=== PATIENT | female | born 1955 | race Caucasian/White ===

== ENCOUNTER 2017-06-15 09:47 | Emergency (ER) | payer OTHER, SELFPAY ==
[2017-06-15 09:48] VITALS: BP 141/87; PULSE 81; RESP 16; TEMP 36.9; O2SAT 97; BMI 29.7
--- NOTE | 2017-06-15 09:55 | RAD_ITS ---
STUDY: X-RAY - PELVIS AND RIGHT HIP REASON FOR EXAM: Female, 61 years old. Sudden onset of right hip pain this morning. Pain over greater trochanter. TECHNIQUE: Radiological exam, hip, unilateral, with pelvis when performed; 2 or 3 views. COMPARISON: None. FINDINGS: There is a non-specific bowel gas pattern. Normal visualized soft tissue structures. Normal bilateral iliac wings, sacroiliac joints and visualized sacrum. Normal bilateral superior and inferior pubic rami. Normal pubic symphysis. Normal bilateral ischial tuberosities. Normal visualized femoral head. Normal acetabulum. Normal hip joint. RAD/Hip 2-3 Views with Pelvis IMPRESSION: Normal x-ray examination of the pelvis and right hip. Electronically Signed: Fernando Gomez MD at 11:10 EDT , Service support ,
--- NOTE | 2017-06-15 10:04 | ED.DCSUM_ITS ---
- ER Visit Summary Date of Service: 06/15/17 Chief Complaint: Right hip pain History of Present Illness: The patient is a 61 F reports right hip pain that started early this morning. Has been waxing and waning throughout the day. Pain is worse with abduction of her right leg. Patient denies known injury but has currently been cleaning and moving furniture out of her parents apartment. She denies back pain. She denies leg weakness or paresthesias. Physical Examination: Vital signs are unremarkable. Patient is in no acute distress. Head neck examination is normal. Heart is regular rate and rhythm. Lung sounds are clear. Abdomen is soft nontender. Back examination reveals no thoracic or lumbar tenderness. There is no point tenderness over the SI joints. Lower external examination was reproduced with tenderness of the greater trochanter of the right hip. She is full range of motion at the joint. She has strong distal pulses and normal sensation. Test Results: X-rays are obtained and unremarkable per my review. Emergency Department Course and Treatment: Patient took ibuprofen prior to arrival and was given p.o. prednisone here. And for prednisone taper. Treatment Plan: [] Disposition: Discharge Impression: Right hip tendonitis This note was generated with [employer] dictation software. It may contain incorrect words, spelling, and punctuation that were not noted in review of the chart prior to signing ED Disposition - Plan for ED Patient: Chief Complaint: Lower Extremity Injury Referrals: Mariposa Flores PA [Primary Care Provider] -
--- NOTE | 2017-06-15 10:58 | ED.DEP ---
ED Disposition - Plan for ED Patient: Disposition: Home or Assisted Living Chief Complaint: Lower Extremity Injury Instructions: ED Tendinitis Calcific Prescriptions: Prednisone 10 mg PO UD #33 tablet Referrals: Mariposa Flores PA [Primary Care Provider] - 1 Week if not improving
[2017-06-15] MEDS: predniSONE 20 MG Tablet 60 MG PO (11:09)
== END 2017-06-15 11:12 | disposition home or self-care (01) ==
PROVIDERS: Emergency Provider Emergency Medicine; Family Provider Physician Assistant; PCP Physician Assistant
DX: M76.891 Other specified enthesopathies of right lower limb, excluding foot (principal); E78.00 Pure hypercholesterolemia, unspecified
CPT/HCPCS: 73502; 99283

== ENCOUNTER → 2017-08-16 07:15 | Outpatient (CLI) | payer OTHER, SELFPAY ==
[2017-08-16 08:24] LABS: AST(SGOT) 47 U/L (15-37); Alanine Aminotransfer ALT/SGPT 73 U/L (13-56); Albumin, Serum 3.8 g/dL (3.2-5.0); Alkaline Phosphatase 78 U/L (45-117); Anion Gap 6 (5-15); BUN 9 mg/dL (7-18); BUN/Creat Ratio 12.5 RATIO (10-20); Calcium,Total 8.8 mg/dL (8.5-10.1); Chloride 107 mmol/L (98-107); Cholesterol 191 mg/dL (200); Creatinine, Serum 0.72 mg/dL (0.55-1.02); EST Glomerular Filtration Rate 88 mL/min (>60); Est Glom Filt Rate - Afr Amer 106 mL/min (>60); Globulin 3.9 g/dL (2.2-4.2); Glucose 107 mg/dL (74-106); High Density Lipoprotein 42 mg/dL; Potassium 3.8 mmol/L (3.5-5.1); Protein, Total 7.7 g/dL (6.4-8.2); Sodium Level 141 mmol/L (136-145); Triglycerides 150 mg/dL; Very Low Density Lipoprotein 30 mg/dL (5-40)
== END ==
PROVIDERS: Family Provider Physician Assistant; PCP Physician Assistant; Visit Provider Physician Assistant
DX: E78.5 Hyperlipidemia, unspecified (principal)
CPT/HCPCS: 36415; 80053; 80061

== ENCOUNTER → 2018-01-08 07:38 | Outpatient (CLI) | payer OTHER, SELFPAY ==
--- NOTE | 2018-01-08 07:40 | BI_ITS ---
MAMMOGRAPHY - BILATERAL SCREENING REASON FOR EXAM: Female, 62 years old. Routine annual screening examination. PERTINENT HISTORY: Non-contributory. TECHNIQUE: Digital bilateral breast michael (3D mammographic acquisition) in the CC and MLO projections. 2-D mediolateral oblique (MLO) and craniocaudad (CC) views of both breasts were obtained. CAD: Full Field Digital Mammography with Computer Added Detection was performed. COMPARISON: Comparison is made with prior study dated December 28, 2016 and July 25, 2016. FINDINGS: Breast Composition: The breasts are heterogeneously dense, which may obscure small masses. There are no dominant masses or suspicious calcifications. Stable 5 mm x 7 mm well-defined nodular density in the deep inferior medial aspect of the right breast. This was demonstrated to be a cyst prior sonogram. No other significant abnormalities are identified. There has been no significant change since the prior study. BI/SCREENING MAMM (CAD), BILAT IMPRESSION: Stable bilateral screening mammogram. Yearly follow-up mammogram recommended. (A) ASSESSMENT CATEGORY: BIRADS Category 2: Benign. A letter regarding these results will be sent to the patient by the facility within 30 days. Approximately 10% of breast cancers are not detected by mammography. A normal mammogram should not delay biopsy of a clinically suspicious abnormality. [id number] Electronically Signed: Ricardo Baptiste MD at 8:25 EDT Tel [phone], Service support ,
== END ==
PROVIDERS: Family Provider Physician Assistant; PCP Physician Assistant; Referring Provider Physician Assistant; Visit Provider Physician Assistant
DX: Z12.31 Encounter for screening mammogram for malignant neoplasm of breast (principal)
CPT/HCPCS: 77063; 77067

== ENCOUNTER 2018-01-14 11:00 | Outpatient (RCR) | payer OTHER, SELFPAY | END 2018-01-14 17:21 | disposition home or self-care (01) | LOC: NS 11:00 | PROVIDERS: Family Provider Physician Assistant; PCP Physician Assistant; Visit Provider Physician Assistant | DX: E66.9 Obesity, unspecified (principal); Z68.30 Body mass index [BMI] 30.0-30.9, adult; Z71.3 Dietary counseling and surveillance | CPT/HCPCS: 97802; 97803 ==

== ENCOUNTER 2018-09-16 06:22 | Day surgery (SDC) | payer OTHER, SELFPAY ==
[2018-09-16] VITALS (11 sets, daily range): BP systolic 89–141; BP diastolic 36–87; PULSE 70–85; RESP 15–18; TEMP 36.2–36.6; O2SAT 91–100; BMI 29.0
--- NOTE | 2018-09-16 06:45 | PCM.HP.STD ---
Problem List (1) Screening for intestinal cancer Status: Acute History of Present Illness Date of Admission: 09/16/18 The patient is a 63 year old F who presents for screening colonoscopy today. She has no personal history of colon polyps and there is no family history of colon cancer. She otherwise currently has been well. No bright red blood per rectum or melena. No abdominal pain. No unexpected weight loss. Past Medical History Allergies aspirin Adverse Reaction (Verified 09/16/18 06:43) Upset Stomach Home Medications: Ambulatory Orders Medication Instructions Recorded Atorvastatin Calcium [Lipitor] 40 mg PO QHS 06/15/17 Calcium Carbonate [Calcium] 600 mg PO DAILY 09/12/18 Cyanocobalamin (Vitamin B-12) 1,000 mcg PO DAILY 09/12/18 [Vitamin B-12] L.acidoph,Paracasei, B.lactis 1 ea PO DAILY 09/12/18 [Probiotic] Magnesium Oxide [Magnesium] 400 mg PO DAILY 09/12/18 Milk Thistle 500 mg PO BID 09/12/18 Greenwood-3 Fatty Acids/Fish Oil 1 ea PO DAILY 09/12/18 [Greenwood 3 1,000 mg Softgel] Turmeric Root Extract [Turmeric] 1,053 mg PO DAILY 09/12/18 Smoking Status: Former smoker Tobacco Use: Non-smoker Review of Systems Constitutional: Denies: Anorexia HEENT: Denies: Difficulty Swallowing Cardiovascular: Denies: Chest Pain Respiratory: Denies: Cough Gastrointestinal: Reports: Vomiting - vomiting with dulcolax. Denies: Abdominal Pain, Nausea, Melena Endocrine: Denies: Change in Body Habitus VTE Information - Inpt Only VTE Present on Admission: No Patient Problems: Active and Suspected Problems Screening for intestinal cancer (Acute) - Physical Exam General: Alert, Oriented x3, Cooperative, No apparent distress HEENT: Atraumatic Oral: Moist Mucosa Neck: Supple Lungs: Clear to auscultation Cardiovascular: Regular rate, Regular Rhythm Abdomen: Bowel Sounds Present, Soft, Non Tender, Non-Distended Psych/Mental Status: Normal Affect Assessment/Plan All Active Problems Screening for intestinal cancer (Acute) Plan for screening colonoscopy with possible biopsy or polypectomy is indicated. She is aware of the technique, benefits, risks and alternatives. She has had an opportunity to ask and have questions answered. She presents via our open access program today. We will proceed as noted. Russell Mathew M.D., F.A.C.S.
--- NOTE | 2018-09-17 10:45 | OP.ENDO_ITS ---
09/17/2018 Mariposa Flores Re : Colonoscopy procedure for Yoly Hensley Mark This procedure was performed on Sunday, September 16, 2018. My impressions and recommendations are as follows: Impressions : - Hemorrhoids found on perianal exam. - Tortuous colon. - The examination was otherwise normal. - No specimens collected. Recommendations : - Discharge patient to home. - Resume previous diet. - Continue present medications. - Repeat colonoscopy in 10 years for screening purposes. My findings are described in the full procedure note, which is enclosed. If I can be of further assistance, please feel free to contact me at Doctor phone number(s): Work: . Sincerely, Russell Mathew MD 09/16/2018 7:54:34 AM This report has been signed electronically.
== END 2018-09-16 08:58 | disposition home or self-care (01) ==
LOC: EN 06:24 → AC 06:25
PROVIDERS: Family Provider Physician Assistant; PCP Physician Assistant; Referring Provider Physician Assistant; Visit Provider Surgery
PROC: 0DJD8ZZ Inspection of Lower Intestinal Tract, Via Natural or Artificial Opening Endoscopic (ICD-10-PCS; CPT 45378; principal; 2018-09-16 07:25)
DX: Z12.11 Encounter for screening for malignant neoplasm of colon (principal); K64.9 Unspecified hemorrhoids; Q43.8 Other specified congenital malformations of intestine; Z87.891 Personal history of nicotine dependence
CPT/HCPCS: 45378; 99152; 99153; J7120

== ENCOUNTER → 2019-01-09 09:47 | Outpatient (CLI) | payer OTHER, SELFPAY ==
[2018-09-16 06:46] VITALS: BMI 29.0
--- NOTE | 2019-01-09 09:56 | BI_ITS ---
MAMMOGRAPHY - BILATERAL SCREENING REASON FOR EXAM: Female, 63 years old. Routine annual screening examination. PERTINENT HISTORY: Non-contributory. TECHNIQUE: Digital bilateral breast stacey (3D mammographic acquisition) in the CC and MLO projections. 2-D mediolateral oblique (MLO) and craniocaudad (CC) views of both breasts were obtained. CAD: Full Field Digital Mammography with Computer Added Detection was performed. COMPARISON: Comparison is made with prior study January 08, 2018 and December 28, 2016. FINDINGS: Breast Composition: The breasts are heterogeneously dense, which may obscure small masses. There are no dominant masses or suspicious calcifications. Stable 8 mm x 6 mm well-defined nodular density in the deep inferior medial aspect of the right breast. This was demonstrated to be a small cyst on prior sonogram. Stable appearance of the benign appearing bilateral axillary No other significant abnormalities are identified. There has been no significant change since the prior study. BI/SCREEN MAMM (CAD) W/STACEY BILAT IMPRESSION: Stable bilateral screening mammogram. Yearly follow-up mammogram recommended. (A) ASSESSMENT CATEGORY: BIRADS Category 2: Benign. A letter regarding these results will be sent to the patient by the facility within 30 days. Approximately 10% of breast cancers are not detected by mammography. A normal mammogram should not delay biopsy of a clinically suspicious abnormality. [id number] Electronically Signed: Ricardo Baptiste, at 13:25 EDT , Service support ,
== END ==
PROVIDERS: Family Provider Physician Assistant; PCP Physician Assistant; Referring Provider Physician Assistant; Visit Provider Physician Assistant
DX: Z12.31 Encounter for screening mammogram for malignant neoplasm of breast (principal)
CPT/HCPCS: 77063; 77067

== ENCOUNTER → 2019-10-01 09:51 | Outpatient (CLI) | payer BC, SELFPAY ==
[2018-09-16 06:46] VITALS: BMI 29.0
--- NOTE | 2019-10-01 09:57 | BD_ITS ---
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 COMPARISON: Comparison is made with prior study dated August 28, 2016. FINDINGS: Lumbar Spine (L1-L4): g/cm2 (0.957) / T-score (-1.7) / Z-score (-0.4) Findings are suggestive of osteopenia with a moderate fracture risk. Left Femur Total: g/cm2 (0.765) / T-score (-1.9) / Z-score (-0.9) Left Femoral Neck: g/cm2 (0.750) / T-score (-2.1) / Z-score (-0.7) Right Femur Total: g/cm2 (0.757) / T-score (-2.0) / Z-score (-1.0) Right Femoral Neck: g/cm2 (0.735) / T-score (-2.2) / Z-score (-0.9) The T-Scores on the most recent prior examination were: Lumbar Spine (L1-L4): There has been worsening of bone density since the previous examination. Left Femur Total: which represents a worsening of 0.1%. Right Femur Total: which represents a worsening of 0.1%. BD/Dexa Bone Density Study IMPRESSION: The patient is considered osteopenic as outlined below according to World Robert Organization (WHO) criteria with a moderate fracture risk. There has been worsening of bone density since the previous examination. Reference Information: The T-score is the number of standard deviations above or below the standard which is normal for young adults at their peak bone mineral density. The World Health Organization (WHO) interprets the T-scores as follows: Above -1 Normal bone density Between -1 and -2.5 Osteopenia Equal to / or below -2.5 Osteoporosis As a practical clinical guideline, osteopenia may be graded as follows: Mild -1 through -1.5 Moderate -1.6 through -2.0 Severe -2.1 through -2.4 The Z-score is the number of standard deviations above or below age-matched controls. A Z-score of less than -1.5 would be considered abnormal. References: 1. NIH Osteoporosis and Related Bone Diseases http://www.osteo.org 2. International Society for Clinical Densitometry http://www.iscd.org 3. National Osteoporosis Foundation http://www.nof.org Electronically Signed: Ricardo Baptiste, at 15:27 EDT , Service support ,
== END ==
PROVIDERS: PCP Physician Assistant; Referring Provider Physician Assistant; Visit Provider Physician Assistant
DX: M85.80 Other specified disorders of bone density and structure, unspecified site (principal)
CPT/HCPCS: 77080

== ENCOUNTER → 2020-01-11 08:34 | Outpatient (CLI) | payer BC, SELFPAY ==
[2018-09-16 06:46] VITALS: BMI 29.0
--- NOTE | 2020-01-11 08:36 | BI_ITS ---
MAMMOGRAPHY - BILATERAL SCREENING REASON FOR EXAM: Female, 64 years old. Routine annual screening examination. PERTINENT HISTORY: Non-contributory. TECHNIQUE: Digital bilateral breast stacey (3D mammographic acquisition) in the CC and MLO projections. 2-D mediolateral oblique (MLO) and craniocaudad (CC) views of both breasts were obtained. CAD: Full Field Digital Mammography with Computer Added Detection was performed. COMPARISON: Comparison is made with prior study dated 01/09/2019 and 01/09/2008. FINDINGS: Breast Composition: The breasts are heterogeneously dense, which may obscure small masses. There are no dominant masses or suspicious calcifications. Stable 8 mm x 6 mm well-defined nodule in the deep inferior medial aspect of the right breast. This was demonstrated to be a small cyst on prior sonogram. Stable benign-appearing bilateral axillary lymph nodes. No other significant abnormalities are identified. There has been no significant change since the prior study. BI/SCREEN MAMM (CAD) W/STACEY BILAT IMPRESSION: Stable bilateral screening mammogram. Yearly follow-up mammogram recommended. (A) ASSESSMENT CATEGORY: BIRADS Category 2: Benign. A letter regarding these results will be sent to the patient by the facility within 30 days. Approximately 10% of breast cancers are not detected by mammography. A normal mammogram should not delay biopsy of a clinically suspicious abnormality. [id number] Electronically Signed: Ricardo Baptiste, at 10:01 EDT , Service support ,
== END ==
PROVIDERS: PCP Physician Assistant; Referring Provider Physician Assistant; Visit Provider Physician Assistant
DX: Z12.31 Encounter for screening mammogram for malignant neoplasm of breast (principal)
CPT/HCPCS: 77063; 77067

== ENCOUNTER → 2020-12-12 09:00 | Outpatient (CLI) | payer BC, SELFPAY ==
--- NOTE | 2020-12-12 09:04 | US_ITS ---
STUDY: ABDOMINAL ULTRASOUND - RIGHT UPPER QUADRANT REASON FOR VISIT: Female, 65 years old elevated liver function tests. TECHNIQUE: Ultrasound evaluation of the right upper quadrant was performed with real-time and static raymond-scale imaging. TECHNICAL QUALITY: Adequate. COMPARISON: Comparison is made with prior examination dated 06/01/2014. FINDINGS: Liver: The liver measures 16.9 cm. There is increased echogenicity consistent with fatty infiltration. The bile ducts are within normal limits. There is hepatic color flow. The direction of portal flow is hepatopetal. There is no demonstrated mass lesion. Gallbladder: Normal distended gallbladder. The gallbladder wall measures 2.0 mm. There is a negative sonographic Shea''s sign. There is no pericholecystic fluid. There are no gallstones. Common Bile Duct (C.B.D.): The common bile duct measures 5 mm. Pancreas: Normal size of the head, body and tail of the pancreas. There is normal echogenicity of the pancreas. There is no demonstrated pancreatic mass or cyst. Right Kidney: Normal size of the right kidney. The right kidney measures 11.6 cm x 5.3 cm x 4.2 cm. Normal renal cortex. The right cortex measures 1 cm. There is no demonstrated renal mass or cyst. There is no right hydronephrosis. US/Liver IMPRESSION: Fatty infiltration of the liver. Electronically Signed: Ricardo Baptiste MD at 11:16 EDT , Service support ,
== END ==
PROVIDERS: PCP Student in an Organized Health Care Education/Training Program; Referring Provider Student in an Organized Health Care Education/Training Program; Visit Provider Student in an Organized Health Care Education/Training Program
DX: R79.89 Other specified abnormal findings of blood chemistry (principal)
CPT/HCPCS: 76705

== ENCOUNTER → 2020-12-30 15:46 | Outpatient (CLI) | payer BC, SELFPAY ==
[2018-09-16 06:46] VITALS: BMI 29.0
--- NOTE | 2020-12-30 15:48 | BI_ITS ---
MAMMOGRAPHY - BILATERAL SCREENING REASON FOR EXAM: Female, 65 years old. Routine annual screening examination. PERTINENT HISTORY: Non-contributory. TECHNIQUE: Digital bilateral breast stacey (3D mammographic acquisition) in the CC and MLO projections. 2-D mediolateral oblique (MLO) and craniocaudad (CC) views of both breasts were obtained. CAD: Full Field Digital Mammography with Computer Added Detection was performed. COMPARISON: Comparison is made with prior study dated 01/11/2020 and 01/09/2019. FINDINGS: Breast Composition: The breasts are heterogeneously dense, which may obscure small masses. There are no dominant masses or suspicious calcifications. Stable 8 mm x 6 mm well-defined nodule in the inferior medial aspect right breast. No other significant abnormalities are identified. There has been no significant change since the prior study. BI/SCRN MAMM (CAD)W/STACEY BILAT IMPRESSION: Stable bilateral screening mammogram. Yearly follow-up mammogram recommended. (A) ASSESSMENT CATEGORY: BIRADS Category 2: Benign. A letter regarding these results will be sent to the patient by the facility within 30 days. Approximately 10% of breast cancers are not detected by mammography. A normal mammogram should not delay biopsy of a clinically suspicious abnormality. [id number] Electronically Signed: Ricardo Baptiste MD at 8:39 EDT , Service support ,
== END ==
PROVIDERS: PCP Student in an Organized Health Care Education/Training Program; Referring Provider Student in an Organized Health Care Education/Training Program; Visit Provider Student in an Organized Health Care Education/Training Program
DX: Z12.31 Encounter for screening mammogram for malignant neoplasm of breast (principal)
CPT/HCPCS: 77063; 77067

== ENCOUNTER → 2021-12-18 | Outpatient (CLI) | payer BC, SELFPAY ==
--- NOTE | 2021-12-18 09:34 | BI_ITS ---
MAMMOGRAPHY - BILATERAL SCREENING REASON FOR EXAM: Female, 66 years old. Routine annual screening examination. PERTINENT HISTORY: Non-contributory. TECHNIQUE: Digital bilateral breast stacey (3D mammographic acquisition) in the CC and MLO projections. 2-D mediolateral oblique (MLO) and craniocaudad (CC) views of both breasts were obtained. CAD: Full Field Digital Mammography with Computer Added Detection was performed. COMPARISON: Comparison is made with prior study 12/30/2020 and 01/11/2020. FINDINGS: Breast Composition: The breasts are heterogeneously dense, which may obscure small masses. There are no dominant masses or suspicious calcifications. Stable 8 mm x 6 mm well-defined nodule in the deep inferior medial aspect of the right breast. Stable small benign-appearing bilateral axillary lymph nodes. No other significant abnormalities are identified. There has been no significant change since the prior study. BI/SCRN MAMM (CAD)W/STACEY BILAT IMPRESSION: Stable bilateral screening mammogram. Yearly follow-up mammogram recommended. (A) ASSESSMENT CATEGORY: BIRADS Category 2: Benign. A letter regarding these results will be sent to the patient by the facility within 30 days. Approximately 10% of breast cancers are not detected by mammography. A normal mammogram should not delay biopsy of a clinically suspicious abnormality. [id number] Electronically Signed: Ricardo Baptiste MD at 11:30 EDT ,
== END | disposition home or self-care (01) ==
LOC: OPBI 09:32
PROVIDERS: PCP Student in an Organized Health Care Education/Training Program; Visit Provider Student in an Organized Health Care Education/Training Program
DX: Z12.31 Encounter for screening mammogram for malignant neoplasm of breast (principal)
CPT/HCPCS: 77063; 77067

== ENCOUNTER → 2022-11-20 | Outpatient (CLI) | payer MEDICARE, BC, SELFPAY ==
--- NOTE | 2022-11-20 09:59 | BI_ITS ---
MAMMOGRAPHY - BILATERAL SCREENING REASON FOR EXAM: Female, 67 years old. Routine annual screening examination. PERTINENT HISTORY: Non-contributory. TECHNIQUE: Digital bilateral breast stacey (3D mammographic acquisition) in the CC and MLO projections. 2-D mediolateral oblique (MLO) and craniocaudad (CC) views of both breasts were obtained. CAD: Full Field Digital Mammography with Computer Added Detection was performed. COMPARISON: Comparison is made with prior study December 18, 2021 and December 30, 2020. FINDINGS: Breast Composition: The breasts are heterogeneously dense, which may obscure small masses. There are no dominant masses or suspicious calcifications. Stable benign-appearing bilateral axillary lymph nodes. No other significant abnormalities are identified. There has been no significant change since the prior study. BI/SCRN MAMM (CAD)W/STACEY BILAT IMPRESSION: Stable bilateral screening mammogram. Yearly follow-up mammogram recommended. (A) ASSESSMENT CATEGORY: BIRADS Category 2: Benign. A letter regarding these results will be sent to the patient by the facility within 30 days. Approximately 10% of breast cancers are not detected by mammography. A normal mammogram should not delay biopsy of a clinically suspicious abnormality. [id number] Electronically Signed: Ricardo Baptiste MD at 11:26 EDT ,
== END | disposition home or self-care (01) ==
PROVIDERS: PCP Student in an Organized Health Care Education/Training Program; Referring Provider Student in an Organized Health Care Education/Training Program; Visit Provider Student in an Organized Health Care Education/Training Program
DX: Z12.31 Encounter for screening mammogram for malignant neoplasm of breast (principal)
CPT/HCPCS: 77063; 77067

== ENCOUNTER 2023-08-09 19:42 | Emergency (ER) | payer MEDICARE, BC, SELFPAY ==
[2023-08-09 19:42] VITALS: BP 163/81; PULSE 86; RESP 18; TEMP 36.1; O2SAT 93; BMI 32.3
--- NOTE | 2023-08-09 20:23 | CT_ITS ---
EXAM: CT MAXILLOFACIAL WITHOUT INTRAVENOUS CONTRAST CLINICAL INDICATION: Swelling TECHNIQUE: Helically acquired images were obtained of the face without intravenous contrast. This CT exam was performed using one or more of the following dose reduction techniques: automated exposure control, adjustment of the mA and/or kV according to patient size, and/or use of iterative reconstruction technique. COMPARISON: No relevant prior studies available. FINDINGS: BONES/JOINTS: Unremarkable. No displaced fracture. No discrete lytic or blastic abnormalities. SOFT TISSUES: There is very minimal edema in the subcutaneous tissues over the right mandible. There is a large amount artifact due to amalgam. There is no obvious mass or fluid collection. ORBITS: Unremarkable. Both globes are unremarkable. Extraocular muscles are normal. Retrobulbar fat appears unremarkable. SINUSES: There is bilateral kameron bullosa. There is mucosal thickening in the maxillary sinuses. There is opacification of scattered ethmoid air cells. MASTOID AIR CELLS: Unremarkable as visualized. Clear. DENTAL: No acute findings. No periodontal osseous erosion. CT/Sinus/Facial Bone IMPRESSION: 1. Minimal edema in the subcutaneous tissues over the right mandible which may represent cellulitis. No fluid collection is seen. 2. No acute osseous abnormalities. 3. Minimal mucosal thickening in the maxillary and ethmoid sinuses. Electronically Signed: Jonah Langford MD at 21:35 EDT ,
--- NOTE | 2023-08-09 20:33 | EDS_ITS ---
HPI History of Present Illness Chief Complaint: Dental Informant: patient Onset/Context/Timing Onset: Weeks (1) Context: Gradual Onset Timing: Continuous Quality: Sharp, aching Location: Right face Worsened by: Nothing Relieved by: NSAIDs and - (Augmentin) Associated Symptoms Assocated Symptom - Dental: jaw swelling and face swelling; Negative for fever, cold sensitivity or hot sensitivity Narrative Narrative: Patient presents with dental pain that has been getting progressively worse over the last week. Patient states that she had been on antibiotics and went to the urgent care today. Patient states that her antibiotics were switched to Augmentin and she had her first dose of Augmentin today. Patient states she took some ibuprofen with this and her pain has improved somewhat. Patient describes the pain as sharp and aching. Patient states it is mainly over the right side of her face. Patient states that has been constant. Patient states that the urgent care told her to come to the emergency department because she needed a CT scan to rule out abscess. [facility] Medical History Hemorrhoids Hay fever Environmental allergies Metabolic syndrome GERD (gastroesophageal reflux disease) Hypercholesterolemia Increased liver enzymes Osteoporosis Home Medications ?Medication ?Instructions ?Recorded ?Last Taken ?Type atorvastatin 40 mg tablet 40 mg PO QHS 06/15/17 Unknown History L.acidoph, paracasei,B. lactis 10 1 ea PO DAILY 09/12/18 Unknown History billion cell capsule magnesium oxide 400 mg PO DAILY 09/12/18 Unknown History amoxicillin 875 mg-potassium 1 tab PO Q12H #12 tabs 08/09/23 Unknown Rx clavulanate 125 mg tablet antiarthritic combination no.2 900 mg PO 08/09/23 Unknown History mg tablet (glucosamine-chondroitin) calcium carbonate 500 mg-vitamin 1 tab PO DAILY 08/09/23 Unknown History D3 10 mcg (400 unit) tablet coenzyme Q10 100 mg capsule 100 mg PO DAILY 08/09/23 Unknown History famotidine 20 mg tablet 20 mg PO DAILY 08/09/23 Unknown History hydrocodone-acetaminophen 5-325mg 1 tab PO Q6H PRN PRN Pain 3 days 08/09/23 Unknown Rx 5mg-325mg #10 TABLETS liver anti-oxidant extract PO 08/09/23 Unknown History loratadine 10 mg tablet 10 mg PO DAILY 08/09/23 Unknown History metformin 500 mg tablet 500 mg PO DAILY 08/09/23 Unknown History multivitamin 1 tab PO DAILY 08/09/23 Unknown History turmeric curcumin PO 08/09/23 Unknown History vitamin B complex 1 cap PO DAILY 08/09/23 Unknown History Allergy/AdvReac Type Severity Reaction Status Date / Time aspirin AdvReac Upset Verified 08/09/23 19:43 Stomach Sulfa (Sulfonamide AdvReac Other Verified 08/09/23 19:43 Antibiotics) Surgical History History of tubal ligation History of delivery History of eye surgery Social History Smoking Status: Unknown if ever smoked alcohol intake: never ROS ROS ED Constitutional Constitutional ED: Reports chills and sweats; Denies fever(s) Eyes Eyes: Denies blurry vision or change in vision ENT ENT ED: Denies rhinorrhea or sore throat Cardiovascular Cardiovascular: Denies chest pain or palpitations Respiratory/Chest Respiratory/Chest: Denies cough or dyspnea Gastrointestinal Gastrointestinal: Reports nausea; Denies vomiting Genitourinary Genitourinary ED: Denies dysuria or hematuria Musculoskeletal Musculoskeletal: Reports neck pain; Denies back pain Integumentary Denies abscess or rash Neurologic Neurologic: Reports headache(s); Denies weakness Allergic/Immunologic Allergic/Immunologic ED: Denies mouth swelling or urticaria EXAM Physical Exam Const Vital Signs: 08/09/23 19:42 08/09/23 19:42 08/09/23 20:42 Temperature 97 F L 97 F L Temperature Source Temporal Temporal Pulse Rate 86 86 74 Respiratory Rate 18 18 16 Blood Pressure 163/81 H 163/81 H 172/77 H Blood Pressure Mean 108 108 108 Pulse Ox 93 93 97 Oxygen Delivery Method Room Air Room Air Room Air Positive well nourished and well developed General Appearance ED: well developed and NAD HEENT HEENT Narrative: There is mild edema and tenderness over the right maxillary sinus. There is tenderness over the right upper molars. There is some mild gingival edema. Oropharynx is clear. Airway is patent. There is no fluctuance. There is no sublingual edema. There is no evidence of Damon's angina. Teeth and Gingiva: gingiva abnormal Positive for gingival edema Neck supple and no JVD General: Negative for anterior neck swelling, tenderness or submandibular swelling Neuro oriented x3, moves all extremities, no focal motor deficits and no sensory deficits noted Sensorium / Orientation: alert Motor Exam: strength 5/5 throughout Psych mental status grossly normal MDM MDM MDM Narrative Medical decision making narrative: Differential diagnosis includes facial abscess, sinusitis, and infected dental caries. CT scan of the sinuses will be obtained to assess for facial abscess and sinusitis. CBC will be obtained to assess for leukocytosis and anemia. Basic metabolic profile will be obtained to assess for electrolyte abnormality and renal function. Lab Data Attestation: I reviewed the patient's lab results. Lab results narrative: CBC was reviewed. There is a mild leukocytosis of 12.2. The remainder is within normal limits. Basic metabolic profile was reviewed and was within normal limits. Labs: Laboratory Results - last 24 hr 08/09/23 20:45 WBC 12.2 H RBC 4.87 Hgb 14.3 Hct 44.6 MCV 91.6 MCH 29.4 MCHC 32.1 RDW Std Deviation 41.2 RDW Coeff of Watson 12.3 Plt Count 303 MPV 9.6 Immature Gran % (Auto) 0.200 Neut % (Auto) 65.7 Lymph % (Auto) 21.7 [place] % (Auto) 7.6 Eos % (Auto) 4.2 Baso % (Auto) 0.6 Absolute Neuts (auto) 8.0 H Absolute Lymphs (auto) 2.65 Nucleated RBC % 0 Sodium 137 Potassium 4.4 Chloride 107 Carbon Dioxide 24.0 Anion Gap 6 BUN 17 Creatinine 0.78 Estim Creat Clear Calc 73.23 Est GFR (MDRD) Af Amer 96 Est GFR (MDRD) Non-Af 79 BUN/Creatinine Ratio 21.9 H Glucose 114 H Calcium 9.6 Radiography Diagnostic Testing: Clinical Impression(s) from Imaging Studies Facial/Sinus 08/09/23 20:23 IMPRESSION: 1. Minimal edema in the subcutaneous tissues over the right mandible which may represent cellulitis. No fluid collection is seen. 2. No acute osseous abnormalities. 3. Minimal mucosal thickening in the maxillary and ethmoid sinuses. Electronically Signed: Jonah Langford MD at 21:35 EDT , CT scan of the sinuses was obtained. There is minimal edema in the subcutaneous tissues over the right mandible. There is no fluid collection or abscess noted. There is minimal mucosal thickening of the maxillary and ethmoid sinuses. This was interpreted by the radiologist was also independently reviewed by myself. Treatment and Re-Evaluation Narrative: Patient was given a dose of Unasyn here. Patient was advised of her findings. Patient was instructed to continue the Augmentin as prescribed. Patient was given a prescription for a short course of [place]. Patient was instructed to follow-up with her dentist in 3 to 5 days. Patient was instructed to return if worse in any way. Patient understood and was agreeable with the plan. All questions were answered. Discharge Plan Triage Chief Complaint: Dental ED Provider: Malachi Gooden Dx/Rx/DC Orders Clinical Impression: Infected dental caries Instructions: ED Dental Pain, ED Dental Cavity Prescriptions: New hydrocodone-acetaminophen 5-325 mg tablet 1 tab PO Q6H PRN PRN (Reason: Pain) 3 Days Qty: 10 0RF No Action multivitamin Tablet 1 tab PO DAILY metformin 500 mg tablet 500 mg PO DAILY famotidine 20 mg tablet 20 mg PO DAILY loratadine 10 mg tablet 10 mg PO DAILY vitamin B complex Capsule 1 cap PO DAILY coenzyme Q10 100 mg capsule 100 mg PO DAILY calcium carbonate-vitamin D3 500 mg-10 mcg (400 unit) tablet 1 tab PO DAILY glucosamine-chondroitin 900 mg tablet PO liver anti-oxidant extract PO turmeric curcumin PO amoxicillin-pot clavulanate 875-125 mg tablet 1 tab PO Q12H Qty: 12 0RF atorvastatin 40 MG tablet 40 mg PO QHS L.acidoph, paracasei,B. lactis 1 EACH capsule 1 ea PO DAILY magnesium oxide 400 MG tablet 400 mg PO DAILY Primary Care Provider: Karon Bills Referrals: Karon Bills MD [Primary Care Provider] - 3-5 Days Print Language: Thai Disposition Disposition: Home, Self Care
[2023-08-09 20:42] VITALS: BP 172/77; PULSE 74; RESP 16; O2SAT 97
[2023-08-09 20:57] LABS: Absolute Lymphocyte Count 2.65 X10^3/uL (0.83-4.51); Basophil# 0.07 X10^3/uL; Basophil% 0.6 % (0-1); Eosinophil# 0.51 X10^3/uL; Eosinophils% 4.2 % (0-5); Hematocrit 44.6 % (37-47); Hemoglobin 14.3 g/dL (12.0-15.0); Lymphocyte # 2.65 X10^3/ul (0.83-4.51); Lymphocyte % 21.7 % (19-41); Mean Corp Hgb Conc 32.1 g/dL (32-36); Mean Corpuscular Hgb 29.4 pg (27.0-32.0); Mean Corpuscular Volume 91.6 fL (81-99); Mean Platelet Vol. 9.6 fl (6.2-12.0); Monocyte# 0.93 X10^3/uL; Monocyte% 7.6 % (0-10); NRBC Flagged by Analyzer 0 % (0-5); Neutrophil % 65.7 % (47-70); Platelet Count 303 K/mm3 (150-450); RBC Distribution Width CV 12.3 % (11.6-14.6); RBC Distribution Width SD 41.2 fl (35.1-43.9); Red Blood Count 4.87 M/mm3 (4.2-5.4); White Blood Count 12.2 K/mm3 (4.4-11.0)
[2023-08-09 21:07] LABS: Anion Gap 6 (5-15); BUN 17 mg/dL (7-18); BUN/Creat Ratio 21.9 RATIO (10-20); Calcium,Total 9.6 mg/dL (8.5-10.1); Chloride 107 mmol/L (98-107); Creatinine, Serum 0.78 mg/dL (0.55-1.02); EST Glomerular Filtration Rate 79 mL/min (>60); Est Glom Filt Rate - Afr Amer 96 mL/min (>60); Estimated Creatinine Clearance 73.23 ml/min; Glucose 114 mg/dL (74-106); Potassium 4.4 mmol/L (3.5-5.1); Sodium Level 137 mmol/L (136-145)
[2023-08-09] MEDS: Ampicillin/Sulbactam 3 GM in 0.9% Normal Saline (100mL MB+) 100 ML IV (21:23)
[2023-08-09 22:00] VITALS: BP 162/72; PULSE 74; RESP 16; TEMP 36.6; O2SAT 98
== END 2023-08-09 22:16 | disposition home or self-care (01) ==
PROVIDERS: Emergency Provider Emergency Medicine; PCP Student in an Organized Health Care Education/Training Program; Visit Provider Emergency Medicine
DX: K02.9 Dental caries, unspecified (principal); E78.00 Pure hypercholesterolemia, unspecified; K21.9 Gastro-esophageal reflux disease without esophagitis; Z79.899 Other long term (current) drug therapy; Z98.51 Tubal ligation status
CPT/HCPCS: 70486; 80048; 85025; 96360; 99283; J7050; A4216; J0295

== ENCOUNTER 2023-09-06 17:13 | Emergency (ER) | payer MEDICARE, BC, SELFPAY ==
[2023-09-06 17:14] VITALS: BP 146/70; PULSE 132; RESP 17; TEMP 37.5; O2SAT 98; BMI 31.9
[2023-09-06 17:18] VITALS: BP 146/70; PULSE 132; RESP 17; TEMP 37.5; O2SAT 98
--- NOTE | 2023-09-06 17:31 | EKG12_ITS ---
Test Reason : CP Blood Pressure : / mmHG Vent. Rate : 114 BPM Atrial Rate : 114 BPM P-R Int : 130 ms QRS Dur : 088 ms QT Int : 298 ms P-R-T Axes : 060 035 033 degrees QTc Int : 410 ms Sinus tachycardia Otherwise normal Confirmed by Shalom Felix ([id number]), associate entertainment editor JANE GUZMAN ([id number]) on 09/10/2023 6:02:06 AM Referred By: Confirmed By:Shalom Felix
--- NOTE | 2023-09-06 17:35 | ED.VIS.CHEST ---
HPI History of Present Illness Chief Complaint: Chest Pain Informant: patient and spouse/S.O. Narrative Narrative: Sent in after rediscussion with her PCP office. Last 2 days fevers and chills woke up with sweats. Today had some left-sided chest discomfort stabbing sensation worse with deep breaths. No significant cough. No vomiting or diarrhea or decreased p.o. intake. No urinary symptoms. States saw her PCP office yesterday put on Flonase concerns for allergies. Diabetic on metformin for the last 8 months. She traveled to [place] 4 months ago no leg swelling or cramping. No history of PE or DVT. She states found to have a heart murmur with a pending echo. History of hyperlipidemia. She is switched over to meloxicam by her PCP stopped ibuprofen she took this at 11 AM. Prior Similar Symptoms: No Recent Illness/Hospitalization: Yes CVD Risk Factors: Positive for Hypertension, Diabetes and Hypercholesterolemia; Negative for Smoking PE Risk Factors: Negative for Recent Travel/Surgery, Recent Immobilization, Prior DVT or PE or OCP + Smoking + >/=35 PFSH PFSH Medical History (Updated 09/06/23 @ 20:[address] Colt Robbins, DO) Osteopenia Type 2 diabetes mellitus Heart murmur Right shoulder pain Sinusitis Hypertension Health care maintenance Prediabetes Seasonal depression Specific phobia Hemorrhoids Hay fever Environmental allergies Metabolic syndrome GERD (gastroesophageal reflux disease) Hypercholesterolemia Increased liver enzymes Home Medications ?Medication ?Instructions ?Recorded ?Last Taken ?Type L.acidoph, paracasei,B. lactis 10 1 ea PO DAILY 09/12/18 Unknown History billion cell capsule magnesium oxide 400 mg PO DAILY 09/12/18 Unknown History antiarthritic combination no.2 900 mg PO 08/09/23 Unknown History mg tablet (glucosamine-chondroitin) calcium carbonate 500 mg-vitamin 1 tab PO DAILY 08/09/23 Unknown History D3 10 mcg (400 unit) tablet coenzyme Q10 100 mg capsule 100 mg PO DAILY 08/09/23 Unknown History famotidine 20 mg tablet 20 mg PO DAILY 08/09/23 Unknown History liver anti-oxidant extract PO 08/09/23 Unknown History loratadine 10 mg tablet 10 mg PO DAILY 08/09/23 Unknown History metformin 500 mg tablet 500 mg PO DAILY 08/09/23 Unknown History multivitamin 1 tab PO DAILY 08/09/23 Unknown History turmeric curcumin PO 08/09/23 Unknown History vitamin B complex 1 cap PO DAILY 08/09/23 Unknown History hydroxyzine HCl 10 mg tablet 10 mg PO TID PRN anxiety #90 tabs 08/14/23 Unknown Rx atorvastatin 80 mg tablet 80 mg PO DAILY High cholesterol 09/05/23 Unknown History baclofen 5 mg tablet 5 mg PO QHS PRN muscle spasm #30 09/05/23 Unknown Rx tabs meloxicam 15 mg tablet 15 mg PO DAILY PRN pain #30 tabs 09/05/23 Unknown Rx Allergy/AdvReac Type Severity Reaction Status Date / Time aspirin AdvReac Upset Verified 09/06/23 17:17 Stomach Sulfa (Sulfonamide AdvReac Other Verified 09/06/23 17:17 Antibiotics) Family History (Updated 09/05/23 @ 17:17 by Berta Fraser MA) Father High cholesterol Anemia Arthritis Hypertension Dementia Mother Osteoporosis High cholesterol Arthritis Hypertension Dementia Surgical History History of tubal ligation History of delivery History of eye surgery Social History (Updated 09/05/23 @ 17:19 by Berta Fraser MA) adopted: No household members: spouse number of children: 2 current occupational status: retired pets and animals: Yes (1) pets and animals: cat(s) Smoking Status: Never smoker Tobacco: How many years used: 2 alcohol intake: never substance use type: does not use diet: lactose free caffeine: No what type of physical activity do you participate in: none do you feel safe at home: Yes ROS ROS ED Constitutional Constitutional ED: Reports chills and fever(s); Denies sweats Eyes Eyes: Denies change in vision ENT ENT ED: Denies dysphagia or sore throat Cardiovascular Cardiovascular: Reports chest pain; Denies leg edema, palpitations or racing heartbeat Respiratory/Chest Respiratory/Chest: Reports cough; Denies dyspnea or dyspnea on exertion Gastrointestinal Gastrointestinal: Denies abdominal pain, diarrhea, nausea or vomiting Genitourinary Genitourinary ED: Denies dysuria, hematuria or urinary frequency Musculoskeletal Musculoskeletal: Denies back pain, extremity pain or neck pain Integumentary Denies rash or wounds Neurologic Neurologic: Denies headache(s), paresthesias or weakness EXAM Physical Exam Const Vital Signs: 09/06/23 17:14 09/06/23 17:18 09/06/23 17:24 Temperature 99.5 F H 99.5 F H Temperature Source Temporal Temporal Pulse Rate 132 H 132 H Respiratory Rate 17 17 Respiratory Effort Normal Blood Pressure 146/70 H 146/70 H Blood Pressure Mean 95 95 Pulse Ox 98 98 Oxygen Delivery Method Room Air Room Air 09/06/23 18:50 09/06/23 21:19 Temperature 98.4 F Temperature Source Pulse Rate 71 71 Respiratory Rate 18 18 Respiratory Effort Blood Pressure 128/58 H 120/78 Blood Pressure Mean 81 92 Pulse Ox 98 96 Oxygen Delivery Method Room Air Positive well nourished and well developed General Appearance ED: well developed and NAD HEENT Reports moist mucous membranes normocephalic and atraumatic Eyes EOMs intact bilaterally and conjunctivae normal General Eye ED: Yes normal appearance of both eyes Neck no lymphadenopathy and supple General: Negative for tenderness Chest Wall Chest: Negative for tenderness Resp normal respiratory effort and normal air movement Effort and Inspection: symmetric chest movement; Negative for respiratory distress Cardio regular rhythm and no murmurs Rate: tachycardic Peripheral Pulses: pulses 2+ throughout GI normal to inspection, nondistended, normoactive bowel sounds and non-tender Palpation: Negative for guarding or rebound tenderness present Back/Spine no CVA tenderness and no thoracic nor lumbar tenderness Extremity normal to inspection General Extremety ED: Negative for edema or tenderness General Extremity: Negative for edema Neuro oriented x3 and no sensory deficits noted Sensorium / Orientation: awake and alert Skin no rashes or lesions noted and no wounds Heart Score History: Slightly/Non-Suspicious ECG: Normal Age: >/= 65 years Risk Factors: 1 or 2 Risk Factors Troponin: </= Normal Limit Score: 3 MDM MDM MDM Narrative Medical decision making narrative: Interventions / MDM: Differential diagnosis: Viral syndrome, pleurisy Diagnosis considered but do not suspect: Pulm embolism, pneumonia however CT negative. ACS of EKG cardiac enzymes negative. My EKG interpretation: Sinus rate of 114, no ST or T wave changes. Imaging independently reviewed and interpreted by myself: CT angiogram chest: No PE, no infiltrates also read by radiology. External documents reviewed: N/A Test considered but not ordered:N/A ED course: Patient tachycardic sinus tachycardia on the cafeteria monitor. No dry mucosal membranes or decreased p.o. intake. EKG ordered, basic labs, cardiac labs along with D-dimer. 1930: D-dimer was elevated initial troponin negative. Subsequent CTA of the chest negative for PE or any infiltrate noted. No acute findings. Patient states having pain with movement she now agrees with Toradol which is ordered. Heart rate improved with fluids. Awaiting for 2-hour troponin. Repeat troponin negative. Patient reassured. She will continue her medicines by her PCP. She will monitor symptoms. Heart rate improved in the ED to 70. Return precaution discussed. All questions were answered. Re-evaluation: stable Disposition discussed with patient/family/significant other: Patient and family Case discussed with consulting clinician: N/A This note was generated with [employer] dictation software. It may contain incorrect words, spelling, and punctuation that were not noted in checking the note before signing. Lab Data Attestation: I reviewed the patient's lab results. Labs: Laboratory Results - last 24 hr 09/06/23 09/06/23 17:35 19:38 WBC 8.6 RBC 4.87 Hgb 14.4 Hct 43.2 MCV 88.7 MCH 29.6 MCHC 33.3 RDW Std Deviation 39.8 RDW Coeff of [place] 12.3 Plt Count 231 MPV 9.7 Immature Gran % (Auto) 0.300 Neut % (Auto) 80.2 H Lymph % (Auto) 11.3 L [place] % (Auto) 6.4 Eos % (Auto) 1.3 Baso % (Auto) 0.5 Absolute Neuts (auto) 6.9 Absolute Lymphs (auto) 0.97 Nucleated RBC % 0 D-Dimer Quant (PE/DVT) 1.54 H* Sodium 132 L Potassium 3.8 Chloride 100 Carbon Dioxide 27.0 Anion Gap 5 BUN 13 Creatinine 0.77 Estim Creat Clear Calc 72.69 Est GFR (MDRD) Af Amer 96 Est GFR (MDRD) Non-Af 80 BUN/Creatinine Ratio 16.9 Glucose 130 H Calcium 8.7 Troponin I High Sens 5 7 Radiography Diagnostic Testing: Clinical Impression(s) from Imaging Studies Chest CTA 09/06/23 18:12 IMPRESSION: Normal CTA chest examination, without a demonstrated pulmonary embolism or arterial dissection. No acute chest disease. Electronically Signed: Sánchez Fox MD at 19:12 EDT , Discharge Plan Triage Chief Complaint: Chest Pain ED Provider: Colt Robbins Dx/Rx/DC Orders Clinical Impression: Chest pain, Acute viral syndrome, Pleurisy Instructions: Pleurisy, ED Chest Pain, Uncertain Cause, ED Viral Syndrome (Adult) Prescriptions: No Action hydroxyzine HCl 10 mg tablet 10 mg PO TID PRN (Reason: anxiety) Qty: 90 1RF atorvastatin 80 mg tablet 80 mg PO DAILY meloxicam 15 mg tablet 15 mg PO DAILY PRN (Reason: pain) Qty: 30 0RF Rx Instructions: Take daily x 5 days then as needed baclofen 5 mg tablet 5 mg PO QHS PRN (Reason: muscle spasm) Qty: 30 0RF multivitamin Tablet 1 tab PO DAILY metformin 500 mg tablet 500 mg PO DAILY famotidine 20 mg tablet 20 mg PO DAILY loratadine 10 mg tablet 10 mg PO DAILY vitamin B complex Capsule 1 cap PO DAILY coenzyme Q10 100 mg capsule 100 mg PO DAILY calcium carbonate-vitamin D3 500 mg-10 mcg (400 unit) tablet 1 tab PO DAILY glucosamine-chondroitin 900 mg tablet PO liver anti-oxidant extract PO turmeric curcumin PO L.acidoph, paracasei,B. lactis 1 EACH capsule 1 ea PO DAILY magnesium oxide 400 MG tablet 400 mg PO DAILY Primary Care Provider: Corin Rice Referrals: Karon Bills MD [Non-Staff] - 3-5 Days Activity Restrictions/Additional Instructions: Your cardiac workup negative for troponin x 2. Your CTA chest neck for PE or any pneumonia. COVID flu, RSV negative. For pleurisy with viral syndrome. There is no pneumonia. Continue symptomatic treatment with medications written by your doctor. Continue oral fluids for hydration. Follow-up with your doctor. If symptoms worsen not controlled medications, return to the ED for reevaluation. Print Language: Canadian Disposition Disposition: Home, Self Care Discharge Date/Time: 09/06/23 21:19
[2023-09-06] MEDS: 0.9% Normal Saline (1000mL) 1,000 ML 1000 ML IV (17:40)
[2023-09-06 17:56] LABS: Absolute Lymphocyte Count 0.97 X10^3/uL (0.83-4.51); Absolute Neutrophil Count 6.9 X10^3/uL (2.0-7.7); Basophil# 0.04 X10^3/uL; Basophil% 0.5 % (0-1); Eosinophil# 0.11 X10^3/uL; Eosinophils% 1.3 % (0-5); Hematocrit 43.2 % (37-47); Hemoglobin 14.4 g/dL (12.0-15.0); Lymphocyte # 0.97 X10^3/ul (0.83-4.51); Lymphocyte % 11.3 % (19-41); Mean Corp Hgb Conc 33.3 g/dL (32-36); Mean Corpuscular Hgb 29.6 pg (27.0-32.0); Mean Corpuscular Volume 88.7 fL (81-99); Mean Platelet Vol. 9.7 fl (6.2-12.0); Monocyte# 0.55 X10^3/uL; Monocyte% 6.4 % (0-10); NRBC Flagged by Analyzer 0 % (0-5); Neutrophil # 6.88 X10^3/uL (2.7-7.7); Neutrophil % 80.2 % (47-70); Platelet Count 231 K/mm3 (150-450); RBC Distribution Width CV 12.3 % (11.6-14.6); RBC Distribution Width SD 39.8 fl (35.1-43.9); Red Blood Count 4.87 M/mm3 (4.2-5.4); White Blood Count 8.6 K/mm3 (4.4-11.0)
[2023-09-06 18:09] LABS: Anion Gap 5 (5-15); BUN 13 mg/dL (7-18); BUN/Creat Ratio 16.9 RATIO (10-20); Calcium,Total 8.7 mg/dL (8.5-10.1); Chloride 100 mmol/L (98-107); Creatinine, Serum 0.77 mg/dL (0.55-1.02); EST Glomerular Filtration Rate 80 mL/min (>60); Est Glom Filt Rate - Afr Amer 96 mL/min (>60); Estimated Creatinine Clearance 72.69 ml/min; Glucose 130 mg/dL (74-106); Potassium 3.8 mmol/L (3.5-5.1); Sodium Level 132 mmol/L (136-145); Troponin-I HS (w/2H Reflex) 5 pg/mL (3.0-54.0)
[2023-09-06 18:11] LABS: D-Dimer Quantitative (DVT/PE) 1.54 FEU/ug/m (0.27-0.49)
--- NOTE | 2023-09-06 18:11 | ED.RN ---
Lab with critical result d-dimer 1.54. Dr. Robbins notified
--- NOTE | 2023-09-06 18:12 | CT_ITS ---
STUDY: CTA CHEST REASON FOR EXAM: Female, 68 years old. chest pain RADIATION DOSAGE (If Supplied By Facility): CTDIvol = ( 9.32 ) mGy, DLP = ( 450.56 ) mGycm TECHNIQUE: The examination was performed with the intravenous administration of IV 100mL Isovue-370. Post-processing of the angiographic images was performed, with multiplanar reformation and 3D reconstruction. Individualized dose optimization techniques were used for this CT. COMPARISON: None. FINDINGS: Normal enhancement of the main pulmonary artery and right and left pulmonary arteries. Normal enhancement of the bilateral peripheral pulmonary arteries. There is no demonstrated pulmonary embolism. Normal thoracic aorta and visualized great vessels. There is no demonstrated aortic dissection. Normal heart and pericardium. Normal mediastinum. Normal hilar regions. Normal visualized trachea and bronchi. The lungs are well expanded. Mild probable scarring in the lung bases worse on the right. Otherwise normal pulmonary parenchyma. Normal pleura. There are no pleural effusions. Normal chest wall structures. Normal osseous structures. There is a solitary gallstone. CT/CTA Chest W/WO Contrast IMPRESSION: Normal CTA chest examination, without a demonstrated pulmonary embolism or arterial dissection. No acute chest disease. Electronically Signed: Sánchez Fox MD at 19:12 EDT ,
[2023-09-06 18:50] VITALS: BP 128/58; PULSE 71; RESP 18; O2SAT 98
[2023-09-06 19:45] LABS: Reflex Troponin-HS? (from REC) Y
[2023-09-06] MEDS: Ketorolac 15 MG/ML Vial IV (19:59)
[2023-09-06 20:04] LABS: Troponin-I HS 7 pg/mL (3.0-54.0)
[2023-09-06 21:19] VITALS: BP 120/78; PULSE 71; RESP 18; TEMP 36.9; O2SAT 96
== END 2023-09-06 21:19 | disposition home or self-care (01) ==
PROVIDERS: Emergency Provider Emergency Medicine; PCP Internal Medicine; Visit Provider Emergency Medicine
DX: R07.9 Chest pain, unspecified (principal); E11.9 Type 2 diabetes mellitus without complications; B34.9 Viral infection, unspecified; I10 Essential (primary) hypertension; Z79.84 Long term (current) use of oral hypoglycemic drugs; R09.1 Pleurisy; Z98.51 Tubal ligation status; K21.9 Gastro-esophageal reflux disease without esophagitis; Z79.899 Other long term (current) drug therapy; E78.5 Hyperlipidemia, unspecified; R05.9 Cough, unspecified
CPT/HCPCS: 71275; 80048; 84484; 85025; 85379; 87631; 93005; 96361; 96374; 99284; J7030; Q9967; A4216

== ENCOUNTER 2023-09-09 08:14 | Emergency (ER) | payer MEDICARE, BC, SELFPAY ==
[2023-09-09 08:14] VITALS: BP 124/66; PULSE 103; RESP 16; TEMP 35.7; O2SAT 95; BMI 31.9
--- NOTE | 2023-09-09 09:14 | CT_ITS ---
STUDY: CT BRAIN WITHOUT CONTRAST REASON FOR EXAM: Female, 68 years old. Headache RADIATION DOSAGE (If Supplied By Facility): CTDIvol = ( 44.99 ) mGy, DLP = ( 779.23 ) mGycm TECHNIQUE: Transaxial CT imaging of the brain was performed without administration of intravenous contrast material. Individualized dose optimization techniques were used for this CT. COMPARISON: No relevant priors. FINDINGS: Normal soft tissue structures. Normal calvarium. There is mild cerebral atrophy with widening of the extra-axial spaces and ventricular dilatation. Normal white matter tracts of the cerebral hemispheres. Normal basal ganglia and thalami. Normal brainstem. Normal cerebellum. There is no intracranial hemorrhage. There are no findings of an acute ischemic infarction. Atherosclerotic plaque formation of the cavernous portions of the internal carotid arteries bilaterally. Mucosal thickening of the ethmoid sinuses. CT/Brain/Head without Contrast IMPRESSION: Chronic involutional changes of the brain. Mucosal thickening of the ethmoid sinuses. Electronically Signed: Ricardo Baptiste MD at 10:15 EDT ,
--- NOTE | 2023-09-09 09:15 | EKG12_ITS ---
Test Reason : GEN ILL Blood Pressure : / mmHG Vent. Rate : 095 BPM Atrial Rate : 095 BPM P-R Int : 134 ms QRS Dur : 084 ms QT Int : 326 ms P-R-T Axes : 065 024 029 degrees QTc Int : 409 ms Normal sinus rhythm Normal ECG Confirmed by Shalom Felix ([id number]), image editor TEODORA JIMENEZ ([id number]) on 09/10/2023 8:03:32 AM Referred By: Confirmed By:Shalom Felix
--- NOTE | 2023-09-09 09:23 | EDS_ITS ---
HPI History of Present Illness Chief Complaint: General Illness Informant: patient and spouse/S.O. Narrative Narrative: 68-year-old female presenting with waxing and waning unusual symptoms. She has been seen in the ER couple times for some of the symptoms here in the last month. Initially she was seen for this lancing pain in the right lower face/maxilla without pain with chewing, initially saw urgent care and it was thought this was potential dental abscess that she was referred to the ER had a CAT scan that was negative for abscess but showed some soft tissue swelling possibly due to cellulitis was placed on antibiotics, and then she states she saw dentist and had the tooth pulled, even though it did not hurt when the dentist was percussing the tooth it sounds like he pulled it anyway and the patient states that did not help anything and she is concerned that he pulled a good tooth. He was telling her that he thought it was related to a nerve and pulling the tooth would help. It did not immediately but the pain gradually lessened over time, until she started getting these headaches, which is more occipital and into her neck, and then yesterday they started getting severe with brief lancinating sharp pains random places in her head, not just on one side and not so much in her face but involving the temporal areas, high parietal and occipital areas radiating into her neck at times, which she states is a different pain and feels very sore. It hurts to move her neck around, she is able to do it. She denies any confusion. She has had fevers for the past week but they stopped 2 days ago. She was seen here in the ER this past week because at that time she was having significant pain in her right shoulder although it did not hurt to move it, as well as pain with moving and breathing in her left lateral rib cage. She had testing and was ruled out for a PE, and all the other tests were okay. Now the head and neck pain is the most severe and she is here out of concern for the severity of it but states that she did take 600 mg of ibuprofen a little earlier and now it has subsided and is tolerable. Also yesterday she noticed a rash on the back of her left knee that she had not noticed before, it looked black and blue/red, it is relatively asymptomatic and not painful or itchy, today it is less prominent and without the black and blue that she saw yesterday. No distal swelling. She is really concerned about what may be causing all of this stuff. They did take a trip to [place] but that was back in April, she does not recall getting bit by any insects or anything like that. is concerned may be this coul d be Lyme disease, [place] around although she did not have any ticks latched that she knows of. [facility] Medical History (Updated 09/09/23 @ 16:[address] Dmitry Oquendo MD) Osteopenia Type 2 diabetes mellitus Heart murmur Right shoulder pain Sinusitis Hypertension Health care maintenance Prediabetes Seasonal depression Specific phobia Hemorrhoids Hay fever Environmental allergies Metabolic syndrome GERD (gastroesophageal reflux disease) Hypercholesterolemia Increased liver enzymes Home Medications ?Medication ?Instructions ?Recorded ?Last Taken ?Type L.acidoph, paracasei,B. lactis 10 1 ea PO DAILY 09/12/18 Unknown History billion cell capsule magnesium oxide 400 mg PO DAILY 09/12/18 Unknown History antiarthritic combination no.2 900 mg PO 08/09/23 Unknown History mg tablet (glucosamine-chondroitin) calcium carbonate 500 mg-vitamin 1 tab PO DAILY 08/09/23 Unknown History D3 10 mcg (400 unit) tablet coenzyme Q10 100 mg capsule 100 mg PO DAILY 08/09/23 Unknown History famotidine 20 mg tablet 20 mg PO DAILY 08/09/23 Unknown History liver anti-oxidant extract PO 08/09/23 Unknown History loratadine 10 mg tablet 10 mg PO DAILY 08/09/23 Unknown History metformin 500 mg tablet 500 mg PO DAILY 08/09/23 Unknown History multivitamin 1 tab PO DAILY 08/09/23 Unknown History turmeric curcumin PO 08/09/23 Unknown History vitamin B complex 1 cap PO DAILY 08/09/23 Unknown History hydroxyzine HCl 10 mg tablet 10 mg PO TID PRN anxiety #90 tabs 08/14/23 Unknown Rx atorvastatin 80 mg tablet 80 mg PO DAILY High cholesterol 09/05/23 Unknown History baclofen 5 mg tablet 5 mg PO QHS PRN muscle spasm #30 09/05/23 Unknown Rx tabs meloxicam 15 mg tablet 15 mg PO DAILY PRN pain #30 tabs 09/05/23 Unknown Rx doxycycline monohydrate 100 mg 100 mg PO BID #28 CAPSULES 09/09/23 Unknown Rx capsule Allergy/AdvReac Type Severity Reaction Status Date / Time aspirin AdvReac Upset Verified 09/09/23 08:14 Stomach Sulfa (Sulfonamide AdvReac Other Verified 09/09/23 08:14 Antibiotics) Family History (Updated 09/05/23 @ 17:17 by Berta Fraser MA) Father High cholesterol Anemia Arthritis Hypertension Dementia Mother Osteoporosis High cholesterol Arthritis Hypertension Dementia Surgical History History of tubal ligation History of delivery History of eye surgery Social History (Updated 09/05/23 @ 17:19 by Berta Fraser MA) adopted: No household members: spouse number of children: 2 current occupational status: retired pets and animals: Yes (1) pets and animals: cat(s) Smoking Status: Never smoker Tobacco: How many years used: 2 alcohol intake: never substance use type: does not use diet: lactose free caffeine: No what type of physical activity do you participate in: none do you feel safe at home: Yes ROS ROS ED Constitutional Constitutional ED: Reports as per HPI, chills and fever(s) Eyes Eyes: Denies change in vision, diplopia or discharge from eye(s) ENT ENT ED: Reports ear pain bilateral (Off-and-on), facial pain, neck pain and other Details: Facial pain is above the eyes in the frontal forehead area and nowhere else right now ; Denies dental pain, discharge from eye(s), disequillibrium, dizziness, nasal congestion, rhinorrhea or sore throat Cardiovascular Cardiovascular: Denies chest pain or palpitations Respiratory/Chest Respiratory/Chest: Denies cough or dyspnea Gastrointestinal Gastrointestinal: Denies abdominal pain, diarrhea, nausea or vomiting Genitourinary Genitourinary ED: Denies dysuria or hematuria Musculoskeletal Musculoskeletal: Denies arthralgias, back pain or neck pain Integumentary Reports rash; Denies abscess Neurologic Neurologic: Reports as per HPI and headache(s); Denies abnormal speech, behavior changes, confusion, convulsions, disequilibrium, dizziness, memory loss, paresthesias, seizures, syncope or weakness Psychiatric Psychiatric: Denies anxiety or suicidal thoughts EXAM Physical Exam Const Vital Signs: 09/09/23 08:14 09/09/23 08:29 09/09/23 10:14 Temperature 96.2 F L Temperature Source Temporal Pulse Rate 103 H Respiratory Rate 16 Respiratory Pattern Normal Blood Pressure 124/66 H 129/72 H Blood Pressure Mean 85 91 Pulse Ox 95 94 Oxygen Delivery Method Room Air Room Air 09/09/23 12:00 09/09/23 14:00 09/09/23 16:00 Temperature Temperature Source Pulse Rate 86 85 86 Respiratory Rate 18 24 H 16 Respiratory Pattern Blood Pressure 133/71 H 123/60 H 116/67 Blood Pressure Mean 91 81 83 Pulse Ox 97 96 96 Oxygen Delivery Method Room Air Room Air Room Air Positive well nourished and well developed General Appearance ED: well developed and NAD HEENT Reports moist mucous membranes HEENT Narrative: TMs normal bilaterally. Mastoids mildly tender as is the posterior neck diffusely. No palpable lymphadenopathy. Full range of motion of the neck. Sinuses nontender except for the frontals. Normal nose and intraoral exam. normocephalic and atraumatic Eyes PERRL and EOMs intact bilaterally Eyes Narrative: Lazy eye she states this is baseline. Normal conjunctive of bilaterally otherwise. Neck full ROM, no lymphadenopathy and supple Neck Narrative: Diffuse posterior neck tenderness General: tenderness Chest Wall inspection of chest normal and palpation of chest normal Chest Narrative: Area of interest left high lateral rib cage nontender now and normal on inspection Resp normal respiratory effort and clear to auscultation bilaterally Cardio regular rate and regular rhythm Heart Sounds: murmur systolic II/ soft GI non-tender and non-distended Auscultation: normoactive bowel sounds Palpation: soft Back/Spine no CVA tenderness General Back: other FROM Extremity normal to inspection Extremity Narrative: Normal to inspection except for rash behind left knee see below. No palpable cords. No induration. No calf tenderness. No edema distally. Full range of motion all joints no erythema/arthritis General Extremety ED: Negative for edema, pulses abnormal or tenderness General Extremity: Negative for edema or pulses abnormal Neuro oriented x3, CN's II-XII intact bilaterally and no sensory deficits noted Sensorium / Orientation: awake and alert Motor Exam: strength 5/5 throughout Psych mental status grossly normal Skin no wounds Skin Narrative: Patch of ecchymosis versus nonraised erythema in the left popliteal fossa. Nothing raised or palpable. No bullae. No satellite lesions. MDM MDM MDM Narrative Medical decision making narrative: I am concerned about infectious etiology here. She has a heart murmur not sure if this is new. She is concerned about Lyme disease but she does not have any classic symptoms such as arthralgias, the headaches are really bizarre and do not necessarily correlate, the rash is not erythema migrans and the timing is off for it anyway. I am going to send a Lyme titer/screen they understand I will come back anytime soon. Also sending coags and CBC to look at platelets regarding the rash behind her left knee which does not make any obvious sense, and almost looks like a sporotrichosis rash but it is not. Also going to send a malaria screen since she recently was in [place]. It has been reported there but the CDC does not recommend malaria prophylaxis for people going to [place] currently. It is much larger and she has not had any plantar thorn injuries. I think doing a CT of the head is indicated, but if that and the blood tests do not show anything, I think doing an LP to rule out meningitis is reasonable as well we discussed that. Also obtain an EKG to evaluate for possibility of Lyme carditis, and getting blood cultures because she has a heart murmur and has had fevers and so far all of this has been unexplained. EKG and troponin are normal arguing against acute Lyme carditis or other acute cardiac injury. CT of the head images I reviewed as well as the report which I agree with, it is negative for any acute. The rest of her labs were reviewed and unremarkable. I did send a peripheral smear for malaria that is pending as is the Lyme screen which is not performed here. We discussed performing an LP to rule out meningitis. She was amenable to this it was performed see the procedure note. Malaria smear returned negative. My suspicion for malaria is relatively low, not as high as it is for Lyme as far as infectious disease etiologies or concern. I reviewed the CSF results. Negative Gram stain, only 3 white blood cells in either of tubes #1 and 4, decreasing what blood cells, colorless fluid with a normal opening pressure, I did send HSV, enterovirus, and West Nile although there is very little pyuria and those are likely to be negative. Glucose normal protein a little elevated, I interpret all of this as negative for acute bacterial meningitis. I discussed with infectious disease Dr. Perera. He agreed with this interpretation, and agreed that it was reasonable to consider Lyme and descendent screening test, and to treat her empirically with doxycycline for at least 10 days. I am putting her on 14 to give her a little more time to follow-up with her PCP, if the screen comes back negative then she probably does not need to continue doxycycline longer than that. Her headache came back, she was asking for pain medication morphine was ordered but she declined and preferred Toradol which was given. Discussed the plan with patient and they are comfortable that overall plan. History & Record Review Additional record(s) reviewed:: Prior ED visit Lab Data Attestation: I reviewed the patient's lab results. Labs: Laboratory Results - last 24 hr 09/09/23 09/09/23 09/09/23 09:35 12:40 12:40 WBC 9.2 RBC 4.43 Hgb 13.1 Hct 39.1 MCV 88.3 MCH 29.6 MCHC 33.5 RDW Std Deviation 40.3 RDW Coeff of Watson 12.5 Plt Count 240 MPV 9.6 Immature Gran % (Auto) 0.400 Neut % (Auto) 75.3 H Lymph % (Auto) 14.8 L Rosebud % (Auto) 5.0 Eos % (Auto) 4.3 Baso % (Auto) 0.2 Absolute Neuts (auto) 6.9 Absolute Lymphs (auto) 1.36 Nucleated RBC % 0 PT 12.5 INR 0.9 APTT 32.7 Sodium 138 Potassium 3.5 Chloride 106 Carbon Dioxide 25.0 Anion Gap 7 BUN 11 Creatinine 0.80 Estim Creat Clear Calc 72.69 Est GFR (MDRD) Af Amer 92 Est GFR (MDRD) Non-Af 76 BUN/Creatinine Ratio 13.8 Glucose 149 H Calcium 8.9 Total Bilirubin 0.60 AST 50 H ALT 70 H Alkaline Phosphatase 98 Troponin I High Sens 3 Total Protein 7.4 Albumin 3.2 Globulin 4.2 Albumin/Globulin Ratio 0.8 L CSF Appearance CLEAR CLEAR CSF Color COLORLESS CSF WBC CSF RBC CSF Cell Count Tube # CSF Total Cell Counted CSF Neutrophils CSF Lymphocytes CSF Monocytes CSF Comment CSF Glucose CSF Total Protein CSF Lyme IgM Antibody Cancelled Lyme Disease IgG Ab Cancelled Lyme Total Antibody Cancelled Lyme Disease Ab Note Cancelled Malaria Smear Interp 09/09/23 09/09/23 09/09/23 12:40 12:40 12:40 WBC RBC Hgb Hct MCV MCH MCHC RDW Std Deviation RDW Coeff of Watson Plt Count MPV Immature Gran % (Auto) Neut % (Auto) Lymph % (Auto) Rosebud % (Auto) Eos % (Auto) Baso % (Auto) Absolute Neuts (auto) Absolute Lymphs (auto) Nucleated RBC % PT INR APTT Sodium Potassium Chloride Carbon Dioxide Anion Gap BUN Creatinine Estim Creat Clear Calc Est GFR (MDRD) Af Amer Est GFR (MDRD) Non-Af BUN/Creatinine Ratio Glucose Calcium Total Bilirubin AST ALT Alkaline Phosphatase Troponin I High Sens Total Protein Albumin Globulin Albumin/Globulin Ratio CSF Appearance CSF Color COLORLESS CSF WBC 3 3 CSF RBC 52 H 18 H CSF Cell Count Tube # 1 CSF Total Cell Counted CSF Neutrophils CSF Lymphocytes CSF Monocytes CSF Comment CSF Glucose CSF Total Protein CSF Lyme IgM Antibody Lyme Disease IgG Ab Lyme Total Antibody Lyme Disease Ab Note Malaria Smear Interp 09/09/23 09/09/23 09/09/23 12:40 12:40 12:40 WBC RBC Hgb Hct MCV MCH MCHC RDW Std Deviation RDW Coeff of Watson Plt Count MPV Immature Gran % (Auto) Neut % (Auto) Lymph % (Auto) Rosebud % (Auto) Eos % (Auto) Baso % (Auto) Absolute Neuts (auto) Absolute Lymphs (auto) Nucleated RBC % PT INR APTT Sodium Potassium Chloride Carbon Dioxide Anion Gap BUN Creatinine Estim Creat Clear Calc Est GFR (MDRD) Af Amer Est GFR (MDRD) Non-Af BUN/Creatinine Ratio Glucose Calcium Total Bilirubin AST ALT Alkaline Phosphatase Troponin I High Sens Total Protein Albumin Globulin Albumin/Globulin Ratio CSF Appearance CSF Color CSF WBC CSF RBC CSF Cell Count Tube # 4 CSF Total Cell Counted Not Reportable Not Reportable CSF Neutrophils 68 H 64 H CSF Lymphocytes 28 L CSF Monocytes CSF Comment CSF Glucose CSF Total Protein CSF Lyme IgM Antibody Lyme Disease IgG Ab Lyme Total Antibody Lyme Disease Ab Note Malaria Smear Interp 09/09/23 09/09/23 09/09/23 12:40 12:40 12:40 WBC RBC Hgb Hct MCV MCH MCHC RDW Std Deviation RDW Coeff of Watson Plt Count MPV Immature Gran % (Auto) Neut % (Auto) Lymph % (Auto) Rosebud % (Auto) Eos % (Auto) Baso % (Auto) Absolute Neuts (auto) Absolute Lymphs (auto) Nucleated RBC % PT INR APTT Sodium Potassium Chloride Carbon Dioxide Anion Gap BUN Creatinine Estim Creat Clear Calc Est GFR (MDRD) Af Amer Est GFR (MDRD) Non-Af BUN/Creatinine Ratio Glucose Calcium Total Bilirubin AST ALT Alkaline Phosphatase Troponin I High Sens Total Protein Albumin Globulin Albumin/Globulin Ratio CSF Appearance CSF Color CSF WBC CSF RBC CSF Cell Count Tube # CSF Total Cell Counted CSF Neutrophils CSF Lymphocytes 24 L CSF Monocytes 4 L 12 L CSF Comment May follow May follow CSF Glucose 64 CSF Total Protein 56.0 H CSF Lyme IgM Antibody Lyme Disease IgG Ab Lyme Total Antibody Lyme Disease Ab Note Malaria Smear Interp Radiography Diagnostic Testing: Clinical Impression(s) from Imaging Studies Brain CT 09/09/23 09:14 IMPRESSION: Chronic involutional changes of the brain. Mucosal thickening of the ethmoid sinuses. Electronically Signed: Ricardo Baptiste MD at 10:15 EDT , Rhythm Strip Rhythm Strip: Sinus Rhythm Rate: 95 Ectopy: None EKG Initial EKG: Attestation: I personally reviewed and interpreted this EKG as follows: Interpretation: Sinus Rhythm and No Acute Injury Pattern Comments: nml EKG. no AVB. Management Discussion w/another healthcare provider: Paperhanger Assistant (ID Dr. Perera) Procedures Lumbar Puncture Consent/Risks: Consent for procedure obtained Lumbar Puncture Description: Left, Lateral, Sterile Prep, Betadine Prep, Sterile Technique, L3-4 and - (Spinal fluid obtained on third attempt, patient was having discomfort in the left side in the leg before running into any spinal fluid, the crease in her skin in the midline was off to the left, this was detected and on the third attempt went more to the right where I was able to easier time palpati) Spinal Needle: 22ga, 3.5in Sedation: none Opening Pressure: 17.5 Fluid Color: clear, colorless Discharge Plan Triage Chief Complaint: General Illness Other Complaint: Headache ED Provider: Dmitry Oquendo Dx/Rx/DC Orders Clinical Impression: Headache, Sinusitis, Neck arthritis, Fever Instructions: Borrelia Antibody (Blood), ED Sinusitis (Antibiotic Treatment) Prescriptions: New doxycycline monohydrate 100 mg capsule 100 mg PO BID Qty: 28 0RF No Action hydroxyzine HCl 10 mg tablet 10 mg PO TID PRN (Reason: anxiety) Qty: 90 1RF atorvastatin 80 mg tablet 80 mg PO DAILY meloxicam 15 mg tablet 15 mg PO DAILY PRN (Reason: pain) Qty: 30 0RF Rx Instructions: Take daily x 5 days then as needed baclofen 5 mg tablet 5 mg PO QHS PRN (Reason: muscle spasm) Qty: 30 0RF multivitamin Tablet 1 tab PO DAILY metformin 500 mg tablet 500 mg PO DAILY famotidine 20 mg tablet 20 mg PO DAILY loratadine 10 mg tablet 10 mg PO DAILY vitamin B complex Capsule 1 cap PO DAILY coenzyme Q10 100 mg capsule 100 mg PO DAILY calcium carbonate-vitamin D3 500 mg-10 mcg (400 unit) tablet 1 tab PO DAILY glucosamine-chondroitin 900 mg tablet PO liver anti-oxidant extract PO turmeric curcumin PO L.acidoph, paracasei,B. lactis 1 EACH capsule 1 ea PO DAILY magnesium oxide 400 MG tablet 400 mg PO DAILY Primary Care Provider: Corin Rice Referrals: Corin Rice MD [Primary Care Provider] - (call for appt to be seen in next 1-2 weeks) Print Language: Martiniquais Disposition Disposition: Home, Self Care
[2023-09-09 09:51] LABS: Absolute Lymphocyte Count 1.36 X10^3/uL (0.83-4.51); Absolute Neutrophil Count 6.9 X10^3/uL (2.0-7.7); Basophil# 0.02 X10^3/uL; Basophil% 0.2 % (0-1); Eosinophils% 4.3 % (0-5); Hematocrit 39.1 % (37-47); Hemoglobin 13.1 g/dL (12.0-15.0); Lymphocyte # 1.36 X10^3/ul (0.83-4.51); Lymphocyte % 14.8 % (19-41); Mean Corp Hgb Conc 33.5 g/dL (32-36); Mean Corpuscular Hgb 29.6 pg (27.0-32.0); Mean Corpuscular Volume 88.3 fL (81-99); Mean Platelet Vol. 9.6 fl (6.2-12.0); Monocyte# 0.46 X10^3/uL; NRBC Flagged by Analyzer 0 % (0-5); Neutrophil # 6.92 X10^3/uL (2.7-7.7); Neutrophil % 75.3 % (47-70); Platelet Count 240 K/mm3 (150-450); RBC Distribution Width CV 12.5 % (11.6-14.6); RBC Distribution Width SD 40.3 fl (35.1-43.9); Red Blood Count 4.43 M/mm3 (4.2-5.4); White Blood Count 9.2 K/mm3 (4.4-11.0)
[2023-09-09 09:56] LABS: International Normalized Ratio 0.9; Prothrombin Time (Protime)PT. 12.5 SECONDS (11.7-14.9)
[2023-09-09 09:57] LABS: Partial Thromboplast Time 32.7 Seconds (24.1-36.2)
[2023-09-09 10:10] LABS: ALB/GLOB Ratio 0.8 RATIO (0.9-2.4); AST(SGOT) 50 U/L (15-37); Alanine Aminotransfer ALT/SGPT 70 U/L (13-56); Albumin, Serum 3.2 g/dL (3.2-5.0); Alkaline Phosphatase 98 U/L (45-117); Anion Gap 7 (5-15); BUN 11 mg/dL (7-18); BUN/Creat Ratio 13.8 RATIO (10-20); Calcium,Total 8.9 mg/dL (8.5-10.1); Chloride 106 mmol/L (98-107); EST Glomerular Filtration Rate 76 mL/min (>60); Est Glom Filt Rate - Afr Amer 92 mL/min (>60); Estimated Creatinine Clearance 72.69 ml/min; Globulin 4.2 g/dL (2.2-4.2); Glucose 149 mg/dL (74-106); Potassium 3.5 mmol/L (3.5-5.1); Protein, Total 7.4 g/dL (6.4-8.2); Sodium Level 138 mmol/L (136-145); Troponin-I HS 3 pg/mL (3.0-54.0)
[2023-09-09 10:14] VITALS: BP 129/72; O2SAT 94
[2023-09-09 12:00] VITALS: BP 133/71; PULSE 86; RESP 18; O2SAT 97
[2023-09-09] MEDS: Lidocaine 2% (20 ml mdv) 20 ML Vial 5 ML INFILT (12:50)
[2023-09-09 13:28] LABS: QC Malaria Lot#/Exp Date RECORD LOT#/EXP DATE
[2023-09-09 14:00] VITALS: BP 123/60; PULSE 85; RESP 24; O2SAT 96
[2023-09-09 14:20] LABS: Appearance CSF (character) CLEAR (Clear); CSF Color COLORLESS (Colorless); Tested Tube # 1
[2023-09-09 14:30] LABS: RBC Count, Spinal Fluid 52 /mm-3 (None seen); White Count, CSF 3 /mm-3 (0 - 5)
[2023-09-09 14:31] LABS: Appearance CSF (character) CLEAR (Clear); CSF Color COLORLESS (Colorless); Tested Tube # 4
[2023-09-09 14:37] LABS: RBC Count, Spinal Fluid 18 /mm-3 (None seen)
[2023-09-09 14:38] LABS: White Count, CSF 3 /mm-3 (0 - 5)
[2023-09-09 14:42] LABS: Glucose Spinal Fluid 64 mg/dL (40-75)
[2023-09-09 15:16] LABS: Lymphocytes,CSF 28 % (40 - 80); Monocytes,CSF 4 % (15 - 45); Neutrophils,CSF 68 % (0 - 6)
[2023-09-09 15:22] LABS: Lymphocytes,CSF 24 % (40 - 80); Monocytes,CSF 12 % (15 - 45); Neutrophils,CSF 64 % (0 - 6)
[2023-09-09 16:00] VITALS: BP 116/67; PULSE 86; RESP 16; O2SAT 96
[2023-09-09] MEDS: Doxycycline 100 MG CAPSULE PO (16:31)
[2023-09-09] MEDS: Ketorolac 15 MG/ML Vial IV (16:32)
[2023-09-09 16:36] VITALS: BP 135/68; PULSE 91; RESP 15; TEMP 36.3; O2SAT 97
[2023-09-10 13:30] LABS: Pathologist Review Reviewed
--- NOTE | 2023-09-17 18:20 | ED.RN ---
THIS RN WORKED WITH DR. BENAVIDES TO GET OUTPATIENT LYME ORDER PLACED. ORDER FROM PREVIOUS VISIT WAS CANCELLED UNEXPECTEDLY.. MANAGEMENT NOTIFIED. PT NOTIFIED OF NEW ORDER PLACED. VERBALIZES UNDERSTANDING OF OUTPATIENT LAB ORDER THAT NEEDS COMPLETED WITHIN THE NEXT WEEK. NO FURTHER QUESTIONS AT THIS TIME
[2023-09-17 21:03] LABS: Malaria QC Review PASSED
[2023-09-17 21:06] LABS: Lyme IGG CIA Positive (Negative); Lyme IGM CIA Positive (Negative); Lyme Scn Total Ab w/Rflx Positive (Negative)
== END 2023-09-09 16:45 | disposition home or self-care (01) ==
PROVIDERS: Emergency Provider Emergency Medicine; PCP Internal Medicine; Visit Provider Emergency Medicine
DX: R51.9 Headache, unspecified (principal); E11.638 Type 2 diabetes mellitus with other oral complications; R50.9 Fever, unspecified; R01.1 Cardiac murmur, unspecified; E78.00 Pure hypercholesterolemia, unspecified; M25.511 Pain in right shoulder; I10 Essential (primary) hypertension; M47.812 Spondylosis without myelopathy or radiculopathy, cervical region; J32.9 Chronic sinusitis, unspecified; Z98.51 Tubal ligation status; K21.9 Gastro-esophageal reflux disease without esophagitis; Z79.899 Other long term (current) drug therapy; G31.9 Degenerative disease of nervous system, unspecified
CPT/HCPCS: 62270; 36415; 70450; 80053; 82945; 84157; 84484; 85025; 85610; 85730; 86618; 87040; 87070; 87205; 87207; 87498; 87529; 87798; 89050; 89051; 93005; 96374; 96375; 99285

== ENCOUNTER → 2023-10-10 | Outpatient (CLI) | payer MEDICARE, BC, SELFPAY ==
--- NOTE | 2023-10-10 08:51 | BD_ITS ---
STUDY: DUAL ENERGY X-RAY ABSORPTIOMETRY / DXA REASON FOR EXAM: Female, 68 years old. Post menopausal TECHNIQUE: Bone Mineral Density (BMD) measurements of lumbar spine and bilateral hips were obtained. COMPARISON: Comparison is made with prior study dated October 01, 2019. FINDINGS: Lumbar Spine (L1-L4): g/cm2 (0.845) / T-score (-1.8) / Z-score (0.0) Findings are suggestive of osteopenia with a moderate fracture risk. Left Femur Total: g/cm2 (0.684) / T-score (-2.1) / Z-score (-0.8) Left Femoral Neck: g/cm2 (0.511) / T-score (-3.0) / Z-score (-1.5) Right Femur Total: g/cm2 (0.718) / T-score (-1.8) / Z-score (-0.5) Right Femoral Neck: g/cm2 (0.5-4) / T-score (-2.9) / Z-score (-1.3) The T-Scores on the most recent prior examination were: Lumbar Spine (L1-L4): There has been worsening of bone density since the previous examination. Left Femur Total: which represents a worsening of 3%. Right Femur Total: which represents an improvement of 3%. BD/Dexa Bone Density Study IMPRESSION: The patient is considered osteoporotic as outlined below according to World Robert Organization (WHO) criteria with a high fracture risk. There has been worsening of bone density since the previous examination. Reference Information: The T-score is the number of standard deviations above or below the standard which is normal for young adults at their peak bone mineral density. The World Health Organization (WHO) interprets the T-scores as follows: Above -1 Normal bone density Between -1 and -2.5 Osteopenia Equal to / or below -2.5 Osteoporosis As a practical clinical guideline, osteopenia may be graded as follows: Mild -1 through -1.5 Moderate -1.6 through -2.0 Severe -2.1 through -2.4 The Z-score is the number of standard deviations above or below age-matched controls. A Z-score of less than -1.5 would be considered abnormal. References: 1. NIH Osteoporosis and Related Bone Diseases www osteo.org 2. International Society for Clinical Densitometry www iscd.org 3. National Osteoporosis Foundation www nof.org Electronically Signed: Ricardo Baptiste MD at 10:35 EDT ,
[2023-10-10 09:14] LABS: Absolute Lymphocyte Count 2.78 X10^3/uL (0.83-4.51); Absolute Neutrophil Count 6.6 X10^3/uL (2.0-7.7); Basophil# 0.05 X10^3/uL; Basophil% 0.5 % (0-1); Eosinophil# 0.58 X10^3/uL; Eosinophils% 5.4 % (0-5); Hematocrit 42.4 % (37-47); Hemoglobin 13.9 g/dL (12.0-15.0); Lymphocyte # 2.78 X10^3/ul (0.83-4.51); Lymphocyte % 25.7 % (19-41); Mean Corp Hgb Conc 32.8 g/dL (32-36); Mean Corpuscular Hgb 29.6 pg (27.0-32.0); Mean Corpuscular Volume 90.2 fL (81-99); Mean Platelet Vol. 9.8 fl (6.2-12.0); Monocyte% 6.5 % (0-10); NRBC Flagged by Analyzer 0 % (0-5); Neutrophil # 6.61 X10^3/uL (2.7-7.7); Neutrophil % 61.2 % (47-70); Platelet Count 291 K/mm3 (150-450); RBC Distribution Width CV 13.2 % (11.6-14.6); RBC Distribution Width SD 43.3 fl (35.1-43.9); White Blood Count 10.8 K/mm3 (4.4-11.0)
--- NOTE | 2023-10-10 09:19 | ECHOCS_ITS ---
Reason For Study: Murmur Procedure This was a 2D Doppler, Color Flow transthoracic echocardiogram. The study was technically difficult. Contrast injection was performed. Exam performed in department. Left Ventricle Normal LV size. The estimated ejection fraction is 65 %. No evidence for diastolic dysfunction. No regional wall motion abnormalities noted. Right Ventricle Normal right ventricle. Normal systolic function. Atria Normal left atrium. Normal right atrium. No doppler evidence for ASD. Mitral Valve There is no mitral valve stenosis. No mitral valve insufficiency. Tricuspid Valve There is no tricuspid stenosis. Unable to estimate RV systolic pressure due to inadequate jet, pulmonary artery pressure probably normal. Aortic Valve Trisinus/trileaflet aortic valve. There is no aortic stenosis. Trivial aortic valve insufficiency. Pulmonic Valve There is no pulmonic valvular stenosis. No pulmonic valve insufficiency. Great Vessels Normal aortic root. Pericardium/Pleural No pericardial effusion. Medication 22 gauge I.V. with prn adaptor inserted into right arm. Diluted definity 2.5ml given slow IV push to enhance endocardial definition. MMode/2D Measurements & Calculations LVIDd: 3.8 cm IVSd: 1.1 cm Ao root diam: 3.0 cm LVIDs: 2.7 cm LVPWd: 0.83 cm LA dimension: 3.3 cm RVDd: 3.1 cm FS: 29.9 % LAV(MOD-bp): 28.9 ml LVAd ap4: 22.5 cm2 SV(MOD-sp4): 36.8 ml LAV(MOD-bp) Indexed: 15.4 ml/m2 LVLd ap4: 7.3 cm LAV(MOD-sp2): 36.7 ml EDV(MOD-sp4): 55.6 ml LAV(MOD-sp4): 20.4 ml EDV(sp4-el): 58.9 ml LVAs ap4: 10.6 cm2 LVLs ap4: 5.4 cm ESV(MOD-sp4): 18.9 ml ESV(sp4-el): 17.9 ml EF(MOD-sp4): 66.1 % EF(sp4-el): 69.7 % SV(sp4-el): 41.0 ml LA A4 area: 10.3 cm2 RA A4 area: 8.7 cm2 TAPSE: 2.1 cm Time Measurements MV dec time: 0.20 sec Doppler Measurements & Calculations MV E max charbel: 87.4 cm/sec Lat Peak E' Charbel: 10.2 cm/sec Med Peak E' Charbel: 9.2 cm/sec MV A max charbel: 88.2 cm/sec E/E' lat: 8.6 E/E' med: 9.5 MV E/A: 0.99 MV V2 max: 94.4 cm/sec MV P1/2t max charbel: 89.3 cm/sec Ao V2 max: 143.4 cm/sec MV max P.6 mmHg MV P1/2t: 62.3 msec Ao max P.2 mmHg MV V2 mean: 52.9 cm/sec Ao V2 mean: 95.7 cm/sec MV mean P.3 mmHg MV dec slope: 419.6 cm/sec2 Ao mean P.2 mmHg MV V2 VTI: 22.9 cm MVA(P1/2t): 3.5 cm2 Ao V2 VTI: 28.5 cm AV (velocity ratio): 0.92 AI max charbel: 322.7 cm/sec LV V1 max: 119.2 cm/sec PA V2 max: 91.9 cm/sec AI max P.7 mmHg LV V1 max P.7 mmHg LV V1 mean P.1 mmHg AI dec slope: 137.0 cm/sec2 LV V1 mean: 82.1 cm/sec AI P1/2t: 690.0 msec LV V1 VTI: 26.1 cm ECHO/Echo Complete W/ Contrast Interpretation Summary The estimated ejection fraction is 65 %. No evidence for diastolic dysfunction. Trivial aortic valve insufficiency. Ordering Physician: Corin Rice Referring Physician: Corin Rice Performed By: Arpan Walton RCS
[2023-10-10 09:42] LABS: ALB/GLOB Ratio 0.9 RATIO (0.9-2.4); AST(SGOT) 26 U/L (15-37); Alanine Aminotransfer ALT/SGPT 52 U/L (13-56); Albumin, Serum 3.4 g/dL (3.2-5.0); Alkaline Phosphatase 107 U/L (45-117); Anion Gap 2 (5-15); BUN 14 mg/dL (7-18); BUN/Creat Ratio 18.8 RATIO (10-20); Chloride 105 mmol/L (98-107); Cholesterol 160 mg/dL (200); Creatinine, Serum 0.74 mg/dL (0.55-1.02); EST Glomerular Filtration Rate 83 mL/min (>60); Est Glom Filt Rate - Afr Amer 100 mL/min (>60); Globulin 3.9 g/dL (2.2-4.2); Glucose 149 mg/dL (74-106); High Density Lipoprotein 56 mg/dL; Potassium 3.9 mmol/L (3.5-5.1); Protein, Total 7.3 g/dL (6.4-8.2); Sodium Level 137 mmol/L (136-145); Triglycerides 157 mg/dL; Very Low Density Lipoprotein 31 mg/dL (5-40)
[2023-10-10 09:46] LABS: Hemoglobin A1c 6.3 % (3.8-5.6)
== END | disposition home or self-care (01) ==
LOC: CVS 08:34
PROVIDERS: PCP Internal Medicine; Referring Provider Internal Medicine; Visit Provider Internal Medicine
DX: Z78.0 Asymptomatic menopausal state (principal); E11.9 Type 2 diabetes mellitus without complications; I10 Essential (primary) hypertension; E78.5 Hyperlipidemia, unspecified; R01.1 Cardiac murmur, unspecified
CPT/HCPCS: 36415; 77080; 80053; 80061; 83036; 85025; 93306; Q9957; A4216; C8929

== ENCOUNTER → 2023-11-21 | Outpatient (CLI) | payer MEDICARE, BC, SELFPAY ==
--- NOTE | 2023-11-21 14:08 | BI_ITS ---
MAMMOGRAPHY - BILATERAL SCREENING REASON FOR EXAM: Female, 68 years old. Routine annual screening examination. PERTINENT HISTORY: Non-contributory. TECHNIQUE: Digital bilateral breast stacey (3D mammographic acquisition) in the CC and MLO projections. 2-D mediolateral oblique (MLO) and craniocaudad (CC) views of both breasts were obtained. CAD: Full Field Digital Mammography with Computer Added Detection was performed. COMPARISON: Comparison is made with prior study February 19, 2023 and December 18, 2021. FINDINGS: Breast Composition: The breasts are heterogeneously dense, which may obscure small masses. There are no dominant masses or suspicious calcifications. No other significant abnormalities are identified. There has been no significant change since the prior study. BI/SCRN MAMM (CAD)W/STACEY BILAT IMPRESSION: Stable bilateral screening mammogram. Yearly follow-up mammogram recommended. (A) ASSESSMENT CATEGORY: BIRADS Category 1: Negative. A letter regarding these results will be sent to the patient by the facility within 30 days. Approximately 10% of breast cancers are not detected by mammography. A normal mammogram should not delay biopsy of a clinically suspicious abnormality. [id number] Electronically Signed: Ricardo Baptiste MD at 15:03 EDT ,
== END | disposition home or self-care (01) ==
LOC: OPBI 14:06
PROVIDERS: PCP Internal Medicine; Referring Provider Internal Medicine; Visit Provider Internal Medicine
DX: Z12.31 Encounter for screening mammogram for malignant neoplasm of breast (principal)
CPT/HCPCS: 77063; 77067

== ENCOUNTER → 2024-01-01 | Outpatient (CLI) | payer MEDICARE, BC, SELFPAY ==
[2024-01-08 10:09] LABS: HPV APTIMA, High Risk Negative (Negative)
== END | disposition home or self-care (01) ==
LOC: WOBLAB 13:25
PROVIDERS: PCP Internal Medicine; Referring Provider Nurse Practitioner Family; Visit Provider Nurse Practitioner Family
DX: Z12.4 Encounter for screening for malignant neoplasm of cervix (principal)
CPT/HCPCS: 87624; 88175; G0145

== ENCOUNTER → 2024-01-06 | Outpatient (CLI) | payer MEDICARE, BC, SELFPAY ==
[2024-01-06 12:40] LABS: Vitamin D,25 Hydroxy 45.8 ng/mL
[2024-01-06 12:41] LABS: PTHIN 17.6 pg/mL (18.4-80.1)
== END | disposition home or self-care (01) ==
LOC: BIMLAB 10:08
PROVIDERS: PCP Internal Medicine; Referring Provider Internal Medicine; Visit Provider Internal Medicine
DX: M81.0 Age-related osteoporosis without current pathological fracture (principal)
CPT/HCPCS: 36415; 82306; 83970

== ENCOUNTER → 2024-06-25 | Outpatient (CLI) | payer MEDICARE, SELFPAY ==
[2024-06-25 16:03] LABS: Microalbumin,Random Urine 40.7 mg/L (NO RANGE EST.)
[2024-06-25 16:39] LABS: Anion Gap 13 (5-15); BUN 14 mg/dL (4-19); BUN/Creat Ratio 19.5 RATIO (10-20); Calcium,Total 9.2 mg/dL (7.6-11.0); Carbon Dioxide 24.9 mmol/L (21.0-32.0); Chloride 99 mmol/L (98-108); Creatinine, Serum 0.72 mg/dL (0.70-1.20); EST Glomerular Filtration Rate 92 (>60); Glucose 101 mg/dL (70-99); Potassium 3.8 mmol/L (3.3-5.1); Sodium Level 137 mmol/L (133-145)
[2024-06-25 17:13] LABS: Hemoglobin A1c 6.2 % (<=5.6)
[2024-06-26 09:08] LABS: AST(SGOT) 35 U/L (<=31); Alanine Aminotransfer ALT/SGPT 38 U/L (<=34); Albumin, Serum 4.5 g/dL (3.4-4.8); Alkaline Phosphatase 98 U/L (35-104); Globulin 3.4 g/dL (2.2-4.2); Protein, Total 7.9 g/dL (5.9-8.4); Total Bilirubin 0.68 mg/dL (0.00-1.30)
== END | disposition home or self-care (01) ==
LOC: LAB 15:02
PROVIDERS: PCP Internal Medicine; Referring Provider Internal Medicine; Visit Provider Internal Medicine
DX: E11.9 Type 2 diabetes mellitus without complications (principal); R74.8 Abnormal levels of other serum enzymes
CPT/HCPCS: 36415; 80048; 80076; 82043; 82570; 83036

== ENCOUNTER → 2024-11-23 | Outpatient (CLI) | payer MEDICARE, OTHER, SELFPAY ==
--- NOTE | 2024-11-23 10:00 | BI_ITS ---
EXAM: SCRN MAMM (CAD)W/STACEY BILAT DATE: 11/23/2024 CLINICAL HISTORY: F, Age 69 y/o , SCREEN FOR BREAST CANCER TECHNIQUE: Procedure Code: [id number] Modality: MG Procedure: SCRN MAMM (CAD)W/STACEY BILAT COMPARISON: Prior exam(s) dated mammograms dated 11/21/2023, 11/20/2022, and 12/18/2021. FINDINGS: TISSUE DENSITY: There are scattered areas of fibroglandular density. Bilateral Breast Mammographic Findings: There are no suspicious masses, suspicious cluster of microcalcifications, architectural distortion or secondary signs of malignancy identified in either breast. There has been no overall interval significant change in either breast to suggest malignancy in comparison to the prior exam. Benign-appearing round microcalcifications are seen in both breasts. Stable nodular masslike densities are seen in both breasts. BI/SCRN MAMM (CAD)W/STACEY BILAT IMPRESSION: Benign screening mammogram. OVERALL FINAL ASSESSMENT BI-RADS 2: BENIGN RECOMMENDATION: Routine annual follow-up in 1 Year A letter with findings and recommendations will be mailed to the patient. Reading Location: [id number]
== END | disposition home or self-care (01) ==
PROVIDERS: PCP Internal Medicine; Referring Provider Obstetrics & Gynecology; Visit Provider Obstetrics & Gynecology
DX: Z12.31 Encounter for screening mammogram for malignant neoplasm of breast (principal)
CPT/HCPCS: 77063; 77067

== ENCOUNTER → 2024-12-15 | Outpatient (CLI) | payer MEDICARE, OTHER, SELFPAY ==
[2024-12-15 10:22] LABS: Hematocrit 41.8 % (37-47); Hemoglobin 14.0 g/dL (12.0-15.0); Immature Granulocytes Count 0.040 X10^3/uL (0.0-0.0); Mean Corp Hgb Conc 33.5 g/dL (32-36); Mean Corpuscular Volume 88.2 fL (81-99); Mean Platelet Vol. 10.0 fl (6.2-12.0); NRBC Flagged by Analyzer 0 % (0-5); Platelet Count 277 K/mm3 (150-450); RBC Distribution Width CV 12.6 % (11.6-14.6); RBC Distribution Width SD 41.1 fl (35.1-43.9); Red Blood Count 4.74 M/mm3 (4.2-5.4); White Blood Count 10.9 K/mm3 (4.4-11.0)
[2024-12-15 11:14] LABS: AST(SGOT) 25 U/L (<=31); Alanine Aminotransfer ALT/SGPT 31 U/L (<=34); Albumin, Serum 4.3 g/dL (3.4-4.8); Alkaline Phosphatase 95 U/L (35-104); Anion Gap 12 (5-15); BUN 11 mg/dL (4-19); BUN/Creat Ratio 14.2 RATIO (10-20); Calcium,Total 9.6 mg/dL (7.6-11.0); Carbon Dioxide 26.5 mmol/L (21.0-32.0); Chloride 101 mmol/L (98-108); Cholesterol 175 mg/dL (<=200); Globulin 3.1 g/dL (2.2-4.2); Glucose 125 mg/dL (70-99); Low Density Lipoprotein Calc. 86 mg/dL; Potassium 3.8 mmol/L (3.3-5.1); Triglycerides 175 mg/dL; Very Low Density Lipoprotein 35 mg/dL (5-40); Vitamin D,25 Hydroxy 54.6 ng/mL (30-100); cholesterol:hdl ratio screen 3.22
[2024-12-15 11:20] LABS: Creatinine, Urine (random) 98.90 mg/dL (28.00-217.00); Microalbumin,Random Urine < 12.0 mg/L (<20 mg/L)
== END | disposition home or self-care (01) ==
LOC: MTLAB 07:57
PROVIDERS: PCP Internal Medicine; Referring Provider Internal Medicine; Visit Provider Internal Medicine
DX: E11.9 Type 2 diabetes mellitus without complications (principal); I10 Essential (primary) hypertension; M81.0 Age-related osteoporosis without current pathological fracture
CPT/HCPCS: 36415; 80053; 80061; 82043; 82306; 82570; 83036; 85025